=== PATIENT | female | born 1935 | race Caucasian/White ===

== ENCOUNTER → 2016-07-02 | Outpatient (CLI) | payer MEDICARE ==
[2016-07-02 10:03] LABS: ANION GAP 14 (5-19); BLOOD UREA NITROGEN 22 mg/dL (7-20); CALCIUM 9.1 mg/dL (8.4-10.2); CARBON DIOXIDE 29 mmol/L (22-30); CHLORIDE 100 mmol/L (98-107); CREATININE RESULT 1.69 mg/dL (0.52-1.25); GLUCOSE 102 mg/dL (75-110); POTASSIUM 3.7 mmol/L (3.6-5.0); SODIUM 142.7 mmol/L (137-145)
== END ==
LOC: OD 08:34
PROVIDERS: ATTEND Internal Medicine
DX: I50.32 Chronic diastolic (congestive) heart failure (principal); R06.02 Shortness of breath; I12.9 Hypertensive chronic kidney disease with stage 1 through stage 4 chronic kidney disease, or unspecified chronic kidney disease; N18.9 Chronic kidney disease, unspecified; I48.2 Chronic atrial fibrillation; I34.0 Nonrheumatic mitral (valve) insufficiency; I35.1 Nonrheumatic aortic (valve) insufficiency; I36.1 Nonrheumatic tricuspid (valve) insufficiency; I48.91 Unspecified atrial fibrillation; E78.5 Hyperlipidemia, unspecified; I27.89 Other specified pulmonary heart diseases; E11.9 Type 2 diabetes mellitus without complications; Z79.01 Long term (current) use of anticoagulants; Z79.899 Other long term (current) drug therapy
CPT/HCPCS: 36415; 80048; 83880

== ENCOUNTER → 2016-07-23 | Outpatient (CLI) | payer MEDICARE | LOC: OD 09:03 | PROVIDERS: ATTEND Internal Medicine | DX: I48.2 Chronic atrial fibrillation (principal); R06.02 Shortness of breath; I34.0 Nonrheumatic mitral (valve) insufficiency; I35.1 Nonrheumatic aortic (valve) insufficiency; E78.4 Other hyperlipidemia; I36.1 Nonrheumatic tricuspid (valve) insufficiency; I48.91 Unspecified atrial fibrillation; I12.9 Hypertensive chronic kidney disease with stage 1 through stage 4 chronic kidney disease, or unspecified chronic kidney disease; E78.5 Hyperlipidemia, unspecified; N18.9 Chronic kidney disease, unspecified; I27.89 Other specified pulmonary heart diseases; E11.9 Type 2 diabetes mellitus without complications; Z79.01 Long term (current) use of anticoagulants; I50.32 Chronic diastolic (congestive) heart failure; Z79.899 Other long term (current) drug therapy | CPT/HCPCS: 36415; 84132 ==

== ENCOUNTER → 2016-09-28 | Outpatient (CLI) | payer MEDICARE ==
[2016-09-28 09:16] LABS: ABSOLUTE EOSINOPHILS # (AUTO) 0.2 10^3/uL (0.0-0.6); ABSOLUTE LYMPHOCYTES (AUTO) 1.9 10^3/uL (0.5-4.7); ABSOLUTE MONOCYTES (AUTO) 0.7 10^3/uL (0.1-1.4); ABSOLUTE NEUT (AUTO) 3.4 10^3/uL (1.7-8.2); BASOPHILS % (AUTO) 0.8 % (0-2); EOSINOPHILS % (AUTO) 3.3 % (0-6); HEMATOCRIT 39.9 % (36.0-47.0); HEMOGLOBIN 13.3 g/dL (12.0-15.5); LYMPHOCYTES % (AUTO) 30.5 % (13-45); MEAN CORPUSCULAR HEMOGLOBIN 28.9 pg (27.0-33.4); MEAN CORPUSCULAR HGB CONC 33.4 g/dL (32.0-36.0); MEAN CORPUSCULAR VOLUME 87 fl (80-97); MONOCYTES % (AUTO) 10.9 % (3-13); RED BLOOD COUNT 4.61 10^6/uL (3.72-5.28); RED CELL DISTRIBUTION WIDTH 15.1 % (11.5-14.0); SEGMENTED NEUTROPHILS % (AUTO) 54.5 % (42-78); WHITE BLOOD COUNT 6.2 10^3/uL (4.0-10.5)
[2016-09-28 09:29] LABS: APPEARANCE,URINE CLOUDY; BILIRUBIN,URINE NEGATIVE (NEGATIVE); GLUCOSE, URINE NEGATIVE (NEGATIVE); KETONES,URINE NEGATIVE (NEGATIVE); LEUKOCYTE ESTERASE,URINE LARGE (NEGATIVE); NITRITE,URINE NEGATIVE (NEGATIVE); PROTEIN,URINE NEGATIVE (NEGATIVE); URINE SPECIFIC GRAVITY 1.012; UROBILINOGEN,URINE NEGATIVE mg/dL (<2.0)
[2016-09-28 09:39] LABS: ALBUMIN 4.1 g/dL (3.5-5.0); ANION GAP 13 (5-19); BLOOD UREA NITROGEN 34 mg/dL (7-20); CALCIUM 9.9 mg/dL (8.4-10.2); CARBON DIOXIDE 29 mmol/L (22-30); CHLORIDE 102 mmol/L (98-107); CREATININE RESULT 1.93 mg/dL (0.52-1.25); GLUCOSE 114 mg/dL (75-110); PHOSPHORUS 3.8 mg/dL (2.5-4.5); POTASSIUM 3.8 mmol/L (3.6-5.0); SODIUM 143.7 mmol/L (137-145)
[2016-09-29 08:32] LABS: VITAMIN D 25-HYDROXY 37.5 ng/mL (30.0-100.0)
[2016-09-29 12:38] LABS: CREATININE URINE 145.7 mg/dL (Not Estab.); MICROALBUMIN URINE 40.9 ug/mL (Not Estab.)
== END ==
LOC: OD 08:06
PROVIDERS: ATTEND Internal Medicine Nephrology
DX: N18.3 Chronic kidney disease, stage 3 (moderate) (principal)
CPT/HCPCS: 36415; 80048; 81001; 82040; 82043; 82306; 82570; 83970; 84100; 85025

== ENCOUNTER → 2016-10-29 | Outpatient (CLI) | payer MEDICARE ==
[2016-10-29 09:39] LABS: ANION GAP 13 (5-19); BLOOD UREA NITROGEN 34 mg/dL (7-20); CALCIUM 9.6 mg/dL (8.4-10.2); CARBON DIOXIDE 29 mmol/L (22-30); CHLORIDE 101 mmol/L (98-107); CREATININE RESULT 1.79 mg/dL (0.52-1.25); GLUCOSE 110 mg/dL (75-110); POTASSIUM 3.7 mmol/L (3.6-5.0); SODIUM 142.9 mmol/L (137-145)
[2016-10-29 09:48] LABS: ANION GAP 13 (5-19); BLOOD UREA NITROGEN 34 mg/dL (7-20); CALCIUM 9.6 mg/dL (8.4-10.2); CARBON DIOXIDE 29 mmol/L (22-30); CHLORIDE 101 mmol/L (98-107); CREATININE RESULT 1.79 mg/dL (0.52-1.25); GLUCOSE 110 mg/dL (75-110); POTASSIUM 3.7 mmol/L (3.6-5.0); SODIUM 142.9 mmol/L (137-145)
[2016-10-29 11:38] LABS: PROTHROMBIN TIME 56.8 SEC (11.4-15.4)
== END ==
LOC: OD 08:47
PROVIDERS: ATTEND Internal Medicine
DX: I48.0 Paroxysmal atrial fibrillation (principal); Z79.01 Long term (current) use of anticoagulants; I50.32 Chronic diastolic (congestive) heart failure; R06.02 Shortness of breath; I12.9 Hypertensive chronic kidney disease with stage 1 through stage 4 chronic kidney disease, or unspecified chronic kidney disease; N18.9 Chronic kidney disease, unspecified; I34.0 Nonrheumatic mitral (valve) insufficiency; I35.1 Nonrheumatic aortic (valve) insufficiency; E78.5 Hyperlipidemia, unspecified; I36.1 Nonrheumatic tricuspid (valve) insufficiency; I27.89 Other specified pulmonary heart diseases; E11.9 Type 2 diabetes mellitus without complications
CPT/HCPCS: 36415; 80048; 83880; 85610

== ENCOUNTER → 2016-11-09 | Outpatient (CLI) | payer MEDICARE ==
[2016-11-09 10:58] LABS: PROTHROMBIN TIME 34.1 SEC (11.4-15.4)
== END ==
LOC: OD 10:06
PROVIDERS: ATTEND Specialist
DX: I48.2 Chronic atrial fibrillation (principal); Z79.01 Long term (current) use of anticoagulants
CPT/HCPCS: 36415; 85610

== ENCOUNTER → 2016-11-23 | Outpatient (CLI) | payer MEDICARE ==
[2016-11-23 11:11] LABS: PROTHROMBIN TIME 23.2 SEC (11.4-15.4)
== END ==
LOC: OD 09:27
PROVIDERS: ATTEND Specialist
DX: I48.2 Chronic atrial fibrillation (principal); Z79.01 Long term (current) use of anticoagulants
CPT/HCPCS: 36415; 85610

== ENCOUNTER 2016-12-07 07:16 | Day surgery (SDC) | payer MEDICARE ==
[2016-12-01 10:19] LABS: ABSOLUTE BASOPHILS # (AUTO) 0.1 10^3/uL (0.0-0.2); ABSOLUTE EOSINOPHILS # (AUTO) 0.1 10^3/uL (0.0-0.6); ABSOLUTE LYMPHOCYTES (AUTO) 2.2 10^3/uL (0.5-4.7); ABSOLUTE NEUT (AUTO) 4.5 10^3/uL (1.7-8.2); EOSINOPHILS % (AUTO) 1.9 % (0-6); HEMATOCRIT 44.9 % (36.0-47.0); HEMOGLOBIN 14.4 g/dL (12.0-15.5); HGB HCT DIFFERENCE -1.7; LYMPHOCYTES % (AUTO) 27.8 % (13-45); MEAN CORPUSCULAR HEMOGLOBIN 28.9 pg (27.0-33.4); MEAN CORPUSCULAR HGB CONC 32.1 g/dL (32.0-36.0); MEAN CORPUSCULAR VOLUME 90 fl (80-97); MONOCYTES % (AUTO) 12.2 % (3-13); RED BLOOD COUNT 4.99 10^6/uL (3.72-5.28); RED CELL DISTRIBUTION WIDTH 14.2 % (11.5-14.0); SEGMENTED NEUTROPHILS % (AUTO) 57.1 % (42-78); WHITE BLOOD COUNT 7.9 10^3/uL (4.0-10.5)
[2016-12-01 10:32] LABS: APPEARANCE,URINE SLIGHTLY-CLOUDY; BILIRUBIN,URINE NEGATIVE (NEGATIVE); GLUCOSE, URINE NEGATIVE (NEGATIVE); KETONES,URINE NEGATIVE (NEGATIVE); LEUKOCYTE ESTERASE,URINE LARGE (NEGATIVE); NITRITE,URINE NEGATIVE (NEGATIVE); PROTEIN,URINE NEGATIVE (NEGATIVE); URINE SPECIFIC GRAVITY 1.008; UROBILINOGEN,URINE NEGATIVE mg/dL (<2.0)
[2016-12-01 10:36] LABS: BLOOD UREA NITROGEN 35 mg/dL (7-20); CALCIUM 10.7 mg/dL (8.4-10.2); CHLORIDE 98 mmol/L (98-107); CREATININE RESULT 2.16 mg/dL (0.52-1.25); GLUCOSE 133 mg/dL (75-110)
[2016-12-01 10:49] LABS: CARBON DIOXIDE 27 mmol/L (22-30); POTASSIUM 3.9 mmol/L (3.6-5.0); SODIUM 143.5 mmol/L (137-145)
[2016-12-01 10:52] LABS: ANION GAP 19 (5-19)
--- NOTE | 2016-12-01 11:16 | RADIOLOGY REPORT (SQ) ---
EXAM DESCRIPTION: CHEST PA/LATERAL COMPLETED DATE/TIME: 12/01/2016 10:55 am REASON FOR STUDY: PRE-OP COMPARISON: None. EXAM PARAMETERS: NUMBER OF VIEWS: two views TECHNIQUE: Digital Frontal and Lateral radiographic views of the chest acquired. RADIATION DOSE: NA LIMITATIONS: none FINDINGS: LUNGS AND PLEURA: No opacities, masses or pneumothorax. No pleural effusion. MEDIASTINUM AND HILAR STRUCTURES: No masses or contour abnormalities. HEART AND VASCULAR STRUCTURES: There is mild cardiac enlargement. No failure. BONES: No acute findings. HARDWARE: None in the chest. OTHER: No other significant finding. IMPRESSION: NO SIGNIFICANT RADIOGRAPHIC FINDING IN THE CHEST. TECHNICAL DOCUMENTATION: JOB ID: [id number] [employer] All Rights Reserved
--- NOTE | 2016-12-01 16:19 | EKG REPORT ---
SEVERITY:- ABNORMAL ECG - ATRIAL FIBRILLATION RIGHT BUNDLE BRANCH BLOCK : Confirmed by: Elisha Sheridan MD 01-Dec-2016 16:18:16
[~2016-12-07 07:16] MED LIST: CEFAZOLIN 2 GM/D5W RTU 2 GM/50 ML RTUPB IV PRN; LACTATED RINGERS 1000 ML IV PRN; LIDOCAINE 0.5% INJ-PF (5 MG/ML) 50 ML SDV SUBCUT PRN
[2016-12-07] MEDS ORDERED: BUPIVACAINE HCL 0.5 % INJ/PF 30 ML SDV ONE (08:13)
[2016-12-07] MEDS ORDERED: LIDOCAINE 1% INJ-PF (10 MG/ML) 30 ML SDV ONE (08:13)
[2016-12-07] MEDS ORDERED: BETAMET ACET/BETAMET NA INJ 6 MG/1 ML IM ONE (08:15)
[2016-12-07 08:18] LABS: POTASSIUM 4.3 mmol/L (3.6-5.0)
[2016-12-07 08:22] LABS: PROTHROMBIN TIME 25.9 SEC (11.4-15.4)
[2016-12-07 08:23] LABS: PARTIAL THROMBOPLASTIN TIME 42.9 SEC (23.5-35.8)
[2016-12-07] MEDS ORDERED: FENTANYL CITRATE INJ/PF 100 MCG/2 ML AMPUL ONE (09:09)
[2016-12-07] MEDS ORDERED: MIDAZOLAM 2 MG/2 ML INJ ONE ×2 (09:09)
[2016-12-07] MEDS ORDERED: PROPOFOL INJ 200 MG/20 ML VIAL IV ONE (09:10)
[2016-12-07] MEDS ORDERED: MEPERIDINE HCL/PF INJ 25 MG/1 ML DISP.SYRIN IV PRN (09:50)
[2016-12-07] MEDS ORDERED: MORPHINE SULFATE 10 MG/ML INJ IV PRN ×2 (09:50→10:15)
[2016-12-07] MEDS ORDERED: OXYCODONE-ACETAMINOPHEN 5-325 MG TABLET PO PRN ×2 (09:50)
[2016-12-07] MEDS ORDERED: FENTANYL CITRATE INJ/PF 100 MCG/2 ML AMPUL IV PRN ×3 (09:50)
[2016-12-07] MEDS ORDERED: DIPHENHYDRAMINE HCL 50 MG/ML VIAL IV PRN (09:50)
[2016-12-07] MEDS ORDERED: PROMETHAZINE HCL INJ 25 MG/1 ML VIAL IV PRN ×2 (09:50)
[2016-12-07] MEDS ORDERED: ONDANSETRON HCL INJ/PF 4 MG/2 ML SDV IV PRN (10:15)
[2016-12-07] MEDS ORDERED: HYDROCODONE/ACETAMINOPHEN 5-325 MG TABLET PO PRN (10:15)
--- NOTE | 2016-12-07 10:16 | Operative Report ---
Operative Report PREOPERATIVE DIAGNOSIS: Bilateral carpal tunnel syndrome right greater than left , right index trigger finger POSTOPERATIVE DIAGNOSIS: Same OPERATION: 1. Right endoscopic carpal tunnel release. 2. Release of A1 anshu left index finger. 3. Left carpal tunnel injection SURGEON: JORGE KIM ANESTHESIA: LMAC COMPLICATIONS: None ESTIMATED BLOOD LOSS: Minimal PROCEDURE: Indication for above procedure: 80-year-old female with long-standing history of numbness and tingling in her bilateral extremities. Neurodiagnostic testing was done demonstrating carpal tunnel syndrome. We attempted conservative measures without resolution of her symptoms. At that point we discussed treatment options including continued nonoperative management versus operative intervention. Given the fact she had concomitant trigger finger and the decision was made to proceed with right carpal tunnel release with index A1 anshu release and left carpal tunnel injection. Risks and benefits were explained the patient who verbalized understanding consented to the procedure. Procedure In Detail: Patient was seen and evaluated in the preoperative holding area. The RIGHT upper extremity was initialized and marked. Patient received Ancef IV for bacterial prophylaxis. Patient was taken back to the operative room where transferred operative table. Patient was then placed under MAC anesthesia. Once adequately anesthetized, a nonsterile tourniquet was placed on the upper extremity. A surgical team debriefing was performed ensuring all instrumentation was available, the surgical procedure was discussed with possible concerns reviewed. Skin was prepped with alcohol a 50:50 10 mL mixture of 1% lidocaine and 0.5% Marcaine plain was injected locally and w/in carpal canal and additional 5 cc was injected along the index A1 anshu. The left wrist was prepped with alcohol and 6 mg of Celestone was injected into the carpal canal. The RIGHT upper extremity was prepped with chlorhexidine and alcohol and draped in a sterile fashion. A timeout was done identifying correct patient, procedure and extremity everyone in attendance agree with this and verbalized no concerns.The extremity was then exsanguinated the tourniquet was inflated to 250 mmHg. Oblique skin incision was made centered over the A1 anshu of the index finger. The radial and ulnar neurovascular bundles were identified and retracted from the wound. The A1 anshu was identified and incised. The A1 anshu was released to the level of the A2 anshu but not through the A2 anshu. The palmar aponeurotic anshu was released proximal to the A1 anshu. Patient was then awoken from MAC anesthesia and made a full mold engraver there is no evidence of residual triggering or locking. The wound was then copiously irrigated with normal saline. Skin was closed with interrupted 4-0 Monocryl suture. I then proceeded with carpal tunnel release. A transverse skin incision was made just proximal to the wrist flexion crease ulnar to the palmaris longus. Blunt dissection was performed down to the palmaris longus tendon which was retracted radially. Deep to the palmaris longus tendon was the volar carpal ligament this was incised identifying the median nerve deep. With the use of a Salters elevator any soft tissue was freed from the undersurface of the distal transverse carpal ligament. The hook of hamate was identified ulnarly. The ConMed cannulas were then introduced beginning with #1 progressing to a #3 gently dilating the carpal canal. I then introduced the scope within the cannula and identified transverse carpal ligament ensuring the median nerve was not visualized within the cannula. I triangulated distally with a 25-gauge needle identifying the distal aspect of the transverse carpal ligament, to ensure protection of the superficial palmar arch. The arthroscopic knife was used to incise the transverse carpal ligament under direct visualization with the arthroscopic camera. Any excess transverse fibers that remained after the first past were carefully released with a repeat pass. The median nerve was then directly visualized radially without disruption. Once this was completed I placed the #3 dilator and assured I got complete release of the transverse carpal ligament without residual compression. The median nerve was directly visualized and free of any overlying compression. I then turned my attention to release of the volar antebrachial fascia proximally. Once again a Salters was used to open the wound and I proceeded with cannula #1 to #3. The arthroscope was introduced into the cannula and under direct visualization the volar antebrachial fascia was released. Once this was complete I copiusly irrigated the wound with normal saline. The skin incisions were closed with 4-0 Monocryl subcutaneous and a running subcuticular 4-0 Monocryl. This was reinforced with Dermabond and Steri -Strips. Sterile, 4 x 4's and a Chandra bandage was placed loosely. Sponge counts, instrument counts and needle counts were correct. The was no intraoperative complications patient tolerated the procedure well and was stable to PACU.
--- NOTE | 2016-12-07 10:16 | PDOC DISCHARGE SUMMARY ---
Discharge Summary (SDC) - Discharge Final Diagnosis: Bilateral carpal tunnel syndrome, left index trigger finger Date of Surgery: 12/07/16 Discharge Date: 12/07/16 Condition: Good Treatment or Instructions: Schedule Follow Up w/ Dr. Jose Sarmineto @ [facility] to be seen in 10-14 days or as scheduled [place]: [place]: [place]: May remove dressing on postop day #3, keep incision covered and dry. Ice and elevate May begin finger range of motion attempting to make full fist. Stool softener of choice when on pain medication. Prescriptions: Hydrocodone/Acetaminophen [[place] 5-325 mg Tablet] 1 tab PO Q6 PRN #20 tablet PRN Reason: Discharge Diet: As Tolerated Respiratory Treatments at Home: Deep Breathing/Coughing Discharge Activity: No Lifting Over 10 Pounds, No Lifting/Push/Pulling Report the Following to Your Physician Immediately: Fever over 101 Degrees, Unusual Bleeding, Redness, Swelling, Warmth, Increased Soreness
[2016-12-07 12:14] VITALS: BP 111/48
== END 2016-12-07 12:03 | disposition home or self-care (01) ==
LOC: OROUT 07:16
PROVIDERS: ATTEND Orthopaedic Surgery
PROC: 3E0T3BZ Introduction of Anesthetic Agent into Peripheral Nerves and Plexi, Percutaneous Approach (ICD-10-PCS; 2016-12-07)
PROC: 0LN70ZZ Release Right Hand Tendon, Open Approach (ICD-10-PCS; 2016-12-07)
PROC: 01N54ZZ Release Median Nerve, Percutaneous Endoscopic Approach (ICD-10-PCS; principal; 2016-12-07 09:45)
PROC: 3E0T33Z Introduction of Anti-inflammatory into Peripheral Nerves and Plexi, Percutaneous Approach (ICD-10-PCS; 2016-12-07 09:45)
DX: G56.03 Carpal tunnel syndrome, bilateral upper limbs (principal); M65.321 Trigger finger, right index finger; M18.11 Unilateral primary osteoarthritis of first carpometacarpal joint, right hand; I48.2 Chronic atrial fibrillation; I10 Essential (primary) hypertension; E11.9 Type 2 diabetes mellitus without complications; E66.9 Obesity, unspecified; Z79.899 Other long term (current) drug therapy; Z79.01 Long term (current) use of anticoagulants; Z68.31 Body mass index [BMI] 31.0-31.9, adult
CPT/HCPCS: 93005; 36415 ×2; 82947; 84132; 85025; 85610; 85730; 80048; 81001; 83036; 71020; 93010; 29848; 20526; 26055; J2250; J3490; J0702; J2704; J0690; 1810; J3010

== ENCOUNTER → 2016-12-20 | Outpatient (CLI) | payer MEDICARE | LOC: OD 08:58 | PROVIDERS: ATTEND Specialist | DX: I48.2 Chronic atrial fibrillation (principal); Z79.01 Long term (current) use of anticoagulants | CPT/HCPCS: 36415; 85610 ==

== ENCOUNTER → 2016-12-31 | Outpatient (CLI) | payer MEDICARE ==
[2016-12-31 12:41] LABS: PROTHROMBIN TIME 22.1 SEC (11.4-15.4)
== END ==
LOC: OD 11:08
PROVIDERS: ATTEND Specialist
DX: I48.2 Chronic atrial fibrillation (principal); Z79.01 Long term (current) use of anticoagulants
CPT/HCPCS: 36415; 85610

== ENCOUNTER → 2017-02-09 | Outpatient (CLI) | payer MEDICARE ==
[2017-02-09 12:36] LABS: PROTHROMBIN TIME 16.6 SEC (11.4-15.4)
== END ==
LOC: OD 11:44
PROVIDERS: ATTEND Specialist
DX: I48.2 Chronic atrial fibrillation (principal); Z79.01 Long term (current) use of anticoagulants
CPT/HCPCS: 36415; 85610

== ENCOUNTER → 2017-02-21 | Outpatient (CLI) | payer MEDICARE ==
[2017-02-21 12:47] LABS: PROTHROMBIN TIME 37.3 SEC (11.4-15.4)
[2017-02-21 13:06] LABS: ANION GAP 15 (5-19); BLOOD UREA NITROGEN 66 mg/dL (7-20); CALCIUM 10.3 mg/dL (8.4-10.2); CARBON DIOXIDE 21 mmol/L (22-30); CHLORIDE 105 mmol/L (98-107); CREATININE RESULT 2.63 mg/dL (0.52-1.25); GLUCOSE 108 mg/dL (75-110); POTASSIUM 4.9 mmol/L (3.6-5.0); SODIUM 140.6 mmol/L (137-145)
== END ==
LOC: OD 10:14
PROVIDERS: ATTEND Internal Medicine
DX: I50.32 Chronic diastolic (congestive) heart failure (principal); Z79.01 Long term (current) use of anticoagulants; I35.0 Nonrheumatic aortic (valve) stenosis; I34.0 Nonrheumatic mitral (valve) insufficiency; E78.4 Other hyperlipidemia; I12.9 Hypertensive chronic kidney disease with stage 1 through stage 4 chronic kidney disease, or unspecified chronic kidney disease; N18.9 Chronic kidney disease, unspecified; E11.9 Type 2 diabetes mellitus without complications; I27.89 Other specified pulmonary heart diseases; R94.31 Abnormal electrocardiogram [ECG] [EKG]; Z79.899 Other long term (current) drug therapy
CPT/HCPCS: 36415; 80048; 85610

== ENCOUNTER → 2017-03-17 | Outpatient (CLI) | payer MEDICARE ==
[2017-03-17 11:17] LABS: APPEARANCE,URINE SLIGHTLY-CLOUDY; BILIRUBIN,URINE NEGATIVE (NEGATIVE); GLUCOSE, URINE NEGATIVE (NEGATIVE); KETONES,URINE NEGATIVE (NEGATIVE); LEUKOCYTE ESTERASE,URINE LARGE (NEGATIVE); NITRITE,URINE NEGATIVE (NEGATIVE); PROTEIN,URINE NEGATIVE (NEGATIVE); UROBILINOGEN,URINE NEGATIVE mg/dL (<2.0)
[2017-03-17 11:25] LABS: PROTHROMBIN TIME 41.5 SEC (11.4-15.4)
[2017-03-17 11:27] LABS: ANION GAP 9 (5-19); BLOOD UREA NITROGEN 23 mg/dL (7-20); CALCIUM 9.4 mg/dL (8.4-10.2); CARBON DIOXIDE 26 mmol/L (22-30); CHLORIDE 106 mmol/L (98-107); CREATININE RESULT 2.11 mg/dL (0.52-1.25); GLUCOSE 93 mg/dL (75-110); POTASSIUM 4.7 mmol/L (3.6-5.0); SODIUM 141.4 mmol/L (137-145)
[2017-03-18 11:39] LABS: CREATININE URINE 95.6 mg/dL (Not Estab.); MICROALBUMIN URINE 24.6 ug/mL (Not Estab.)
== END ==
LOC: OD 10:17
PROVIDERS: ATTEND Internal Medicine Nephrology
DX: N18.3 Chronic kidney disease, stage 3 (moderate) (principal); E11.21 Type 2 diabetes mellitus with diabetic nephropathy; I48.2 Chronic atrial fibrillation; Z79.01 Long term (current) use of anticoagulants
CPT/HCPCS: 36415; 80048; 81001; 82043; 82570; 85610

== ENCOUNTER → 2017-03-29 | Outpatient (CLI) | payer MEDICARE ==
[2017-03-29 11:24] LABS: PROTHROMBIN TIME 31.8 SEC (11.4-15.4)
== END ==
LOC: OD 10:09
PROVIDERS: ATTEND Specialist
DX: I48.2 Chronic atrial fibrillation (principal); Z79.01 Long term (current) use of anticoagulants
CPT/HCPCS: 36415; 85610

== ENCOUNTER → 2017-04-18 | Outpatient (CLI) | payer MEDICARE ==
[2017-04-18 10:19] LABS: PROTHROMBIN TIME 30.3 SEC (11.4-15.4)
[2017-04-18 10:38] LABS: ANION GAP 14 (5-19); BLOOD UREA NITROGEN 28 mg/dL (7-20); CALCIUM 9.3 mg/dL (8.4-10.2); CARBON DIOXIDE 23 mmol/L (22-30); CHLORIDE 106 mmol/L (98-107); CREATININE RESULT 2.19 mg/dL (0.52-1.25); GLUCOSE 87 mg/dL (75-110); POTASSIUM 4.9 mmol/L (3.6-5.0); SODIUM 143.1 mmol/L (137-145)
== END ==
LOC: OD 09:10
PROVIDERS: ATTEND Internal Medicine Nephrology
DX: N18.4 Chronic kidney disease, stage 4 (severe) (principal); I48.2 Chronic atrial fibrillation; Z79.01 Long term (current) use of anticoagulants
CPT/HCPCS: 36415; 80048; 85610

== ENCOUNTER → 2017-05-17 | Outpatient (CLI) | payer MEDICARE | LOC: OD 09:00 | PROVIDERS: ATTEND Specialist | DX: I48.2 Chronic atrial fibrillation (principal); Z79.01 Long term (current) use of anticoagulants | CPT/HCPCS: 36415; 85610 ==

== ENCOUNTER 2017-06-01 08:54 | Day surgery (SDC) | payer MEDICARE ==
[2017-05-25 10:54] LABS: HEMATOCRIT 39.5 % (36.0-47.0); HEMOGLOBIN 13.4 g/dL (12.0-15.5); HGB HCT DIFFERENCE 0.7; MEAN CORPUSCULAR HEMOGLOBIN 30.7 pg (27.0-33.4); MEAN CORPUSCULAR VOLUME 90 fl (80-97); RED BLOOD COUNT 4.37 10^6/uL (3.72-5.28); RED CELL DISTRIBUTION WIDTH 13.9 % (11.5-14.0); WHITE BLOOD COUNT 6.4 10^3/uL (4.0-10.5)
[2017-05-25 11:27] LABS: ANION GAP 12 (5-19); BLOOD UREA NITROGEN 42 mg/dL (7-20); CALCIUM 9.6 mg/dL (8.4-10.2); CARBON DIOXIDE 25 mmol/L (22-30); CHLORIDE 103 mmol/L (98-107); CREATININE RESULT 2.38 mg/dL (0.52-1.25); GLUCOSE 102 mg/dL (75-110); POTASSIUM 4.5 mmol/L (3.6-5.0); SODIUM 140.3 mmol/L (137-145)
--- NOTE | 2017-05-25 13:20 | EKG REPORT ---
SEVERITY:- ABNORMAL ECG - ATRIAL FIBRILLATION RIGHT BUNDLE BRANCH BLOCK : Confirmed by: Dudley Merida MD 25-May-2017 13:20:15
[~2017-06-01 08:54] MED LIST changes: +CEFAZOLIN 1 GM/D5W RTU 1 GM/50 ML RTUPB IV ONE; -CEFAZOLIN 2 GM/D5W RTU 2 GM/50 ML RTUPB IV PRN; +CEFAZOLIN INJ 1 GM VIAL IV PRN; -LACTATED RINGERS 1000 ML IV PRN; -LIDOCAINE 0.5% INJ-PF (5 MG/ML) 50 ML SDV SUBCUT PRN; +LIDOCAINE 4% TRANSPARENT DRESSING 5 GM KIT TP PRN; +NORMAL SALINE 1000 ML (RENAL PATIENTS) IV PRN; +SUCCINYLCHOLINE CHLORIDE INJ 200 MG/10 ML VIAL ONE
[2017-06-01] MEDS ORDERED: LIDOCAINE 4% TRANSPARENT DRESSING 5 GM KIT TP PRN (09:07)
[2017-06-01 09:41] LABS: PROTHROMBIN TIME 17.6 SEC (11.4-15.4)
[2017-06-01 09:42] LABS: PARTIAL THROMBOPLASTIN TIME 36.7 SEC (23.5-35.8)
[2017-06-01] MEDS ORDERED: METHYLENE BLUE 50 MG/10 ML AMPULE ONE (09:42)
[2017-06-01] MEDS ORDERED: MICROFIBRILLAR COLLAGEN 1 GM PACK ONE (09:42)
[2017-06-01] MEDS ORDERED: LIDOCAINE 1%/EPINEPHRINE INJ 20 ML VIAL ONE ×2 (09:42→15:14)
[2017-06-01 09:53] LABS: POTASSIUM 4.4 mmol/L (3.6-5.0)
--- NOTE | 2017-06-01 11:59 | EKG REPORT ---
SEVERITY:- ABNORMAL ECG - ATRIAL FIBRILLATION RIGHT BUNDLE BRANCH BLOCK PROBABLE ANTEROSEPTAL INFARCT, AGE INDETERM : Confirmed by: Clifton Ignacio 01-Jun-2017 11:58:57
--- NOTE | 2017-06-01 13:44 | RADIOLOGY REPORT (SQ) ---
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 RADIONUCLIDE AND DOSE: 573 microcuries TC-99mtilmanocept - [employer]ek. The route of agent administration: Subcutaneous in the skin. TECHNIQUE: The skin of the left breast was prepped in sterile fashion. The radiopharmaceutical was administered in equally divided doses in the periareolar breast. LIMITATIONS: None. FINDINGS: Images demonstrate activity at the injection site. IMPRESSION: ADMINISTRATION OF RADIOPHARMACEUTICAL FOR SENTINEL LYMPH NODE EVALUATION. TECHNICAL DOCUMENTATION: JOB ID: [id number] [employer]- All Rights Reserved
[2017-06-01] MEDS ORDERED: EPHEDRINE SULFATE INJ 50 MG/1 ML AMPULE ONE (16:14)
[2017-06-01] MEDS ORDERED: MIDAZOLAM 2 MG/2 ML INJ ONE (16:14)
[2017-06-01] MEDS ORDERED: LIDOCAINE 2% INJ-PF (100 MG/5 ML) SYRINGE ONE (16:14)
[2017-06-01] MEDS ORDERED: FENTANYL CITRATE INJ/PF 100 MCG/2 ML AMPUL ONE (16:14)
[2017-06-01] MEDS ORDERED: HYDROMORPHONE HCL INJ/PF 2 MG/ML AMPULE ONE (16:14)
[2017-06-01] MEDS ORDERED: PROPOFOL INJ 200 MG/20 ML VIAL IV ONE (16:15)
[2017-06-01] MEDS ORDERED: ACETAMINOPHEN 100 ML IV ONE (16:15)
[2017-06-01] MEDS ORDERED: PROMETHAZINE HCL INJ 25 MG/1 ML VIAL IV PRN ×2 (17:15)
[2017-06-01] MEDS ORDERED: MORPHINE SULFATE 10 MG/ML INJ IV PRN ×2 (17:15→18:23)
[2017-06-01] MEDS ORDERED: ONDANSETRON HCL INJ/PF 4 MG/2 ML SDV IV PRN (17:15)
[2017-06-01] MEDS ORDERED: MEPERIDINE HCL/PF INJ 25 MG/1 ML DISP.SYRIN IV PRN (17:15)
[2017-06-01] MEDS ORDERED: OXYCODONE-ACETAMINOPHEN 5-325 MG TABLET PO PRN ×2 (17:15)
[2017-06-01] MEDS ORDERED: FENTANYL CITRATE INJ/PF 100 MCG/2 ML AMPUL IV PRN ×3 (17:15)
[2017-06-01] MEDS ORDERED: DIPHENHYDRAMINE HCL 50 MG/ML VIAL IV PRN (17:15)
[2017-06-01] MEDS ORDERED: KETOROLAC TROMETHAMINE INJ/PF 30 MG/1 ML SDV IV PRN (18:23)
--- NOTE | 2017-06-01 18:28 | Operative Report ---
Operative Report DATE OF SURGERY: 06/01/17 PREOPERATIVE DIAGNOSIS: Invasive lobular left breast carcinoma POSTOPERATIVE DIAGNOSIS: Same OPERATION: 1. Left mastectomy with drain placement. 2. [place] lymph node biopsy left axilla 1. SURGEON: DANNY BELLO INFORMATION MANAGEMENT SPECIALIST: RACHEL RIVERA ANESTHESIA: GA TISSUE REMOVED OR ALTERED: Left breast and sentinel lymph node; Portions of skin flaps COMPLICATIONS: None complications ESTIMATED BLOOD LOSS: 100 cc INTRAOPERATIVE FINDINGS: See below PROCEDURE: The patient was seen in the preop holding area after undergoing left axillary lymphoscintigraphy. The patient had essentially no uptake during the lymph scintigram however after approximately 5 hours in the preop holding area, the patient was found at bedside using neoprobe assessment to have activity in the low axilla. Therefore we proceeded to take the patient to the operating for planned procedure. In addition the patient was evaluated by Dr. Sheridan, medical sales consultant, who felt the patient was at low to moderate risk for perioperative cardiovascular events. The patient was ultimately taken to the operating room she underwent general anesthesia. Left arm is abducted. Left breast exposed. The upper outer aspect of the left periareolar tissue was prepped with alcohol, and approximately 2-1/2 cc of full-strength methylene blue was injected into the intradermal space. The left breast was massaged in the left breast chest wall and axilla were prepped and draped in sterile fashion. Surgical plan and surgical timeout were conducted. Markings were made on the patient's skin for the planned mastectomy. An ellipse of skin was made with a #10 blade. Superior and inferior skin flaps were raised in the standard fashion with the level of dissection taken from the infraclavicular edge to the parasternal tissue and the serratus anterior muscle inferiorly. The breast was taken off of the chest wall including the pectoralis major fascia. We swept the breast and tail of [place]aley off of the lateral aspect of the dissection. The left breast was marked with a short suture in the superior skin edge and a long suture in the lateral skin edge. We noted that the lobular carcinoma was in the deep central aspect of the left breast towards the lateral side. Because of its potential proximity to the anterior subcutaneous and skin margins, we elected to resect a triangular- shaped piece of skin and subcutaneous tissue essentially the inferior lateral remaining margin after mastectomy. It was marked with a short suture in the superior position and a long suture in the lateral position. It was labeled as inferior mastectomy margin and sent to pathology as well. Dr. Solitario personally handcarried the left breast and inferior margin specimens as described above to Dr. Campos, the pathologist. The mastectomy specimen was inked and sliced; the tumor was felt to be with in the gross margins of the specimen. The inferior lateral margin was left for future analysis. We returned to the wound check for bleeding there was none. Additional skin edges were sharply debrided to affect a more cosmetically is fine closure. A large Thomas drain was inferior skin flap, the wound closed with 2-0 Vicryl, skin glue. The physician visitor use assistant, Ms. Leonard, provided assistance during this case by: Assisting , retracting tissue, instillation of local anesthesia and closure of skin incisions.
[2017-06-02 08:14] VITALS: BP 128/53
--- NOTE | 2017-06-02 14:01 | DISCHARGE SUMMARY E ---
Discharge Summary NAME: TWAN ANGELES : 1935 AGE: 81Y ADMITTED: 06/01/2017 DISCHARGED: 06/02/2017 REASON FOR ADMISSION: Invasive lobular carcinoma, left breast. SUMMARY OF HOSPITALIZATION: The patient is an 81-year-old white female with a history of invasive lobular carcinoma of the left breast. She is brought to Ambulatory Surgery for left mastectomy in conjunction with sentinel lymph node mapping and biopsy. The procedure is performed by Dr. Solitario on 06/01/2017. The patient tolerated the procedure well and had no postoperative complications. The following morning she was doing well, tolerating a diet and voiding without difficulty. She was instructed on drain care. She was felt to have received maximum benefit from the hospitalization. Was discharged home. FINAL DIAGNOSES: INVASIVE LOBULAR BREAST CARCINOMA, STATUS POST MASTECTOMY WITH SENTINEL LOBE BIOPSY, DR. SOLITARIO. DISPOSITION: Patient will be discharged home to the care of her family. Follow with Dr. Solitario in 1 week and drain her receptacle and record output accordingly. She will resume preoperative medications, diet and activity and will monitor her blood pressure. DICTATING PHYSICIAN: DANNY SOLITARIO M.D. [id number] PHY#: [id number] ID: [id number] JOB#: [id number] ACCT: [id number] cc:DANNY SOLITARIO M.D. >
== END 2017-06-02 07:50 | disposition home or self-care (01) ==
LOC: 4N 08:54 → OROUT 08:54
PROVIDERS: ATTEND Surgery
PROC: 07B60ZX Excision of Left Axillary Lymphatic, Open Approach, Diagnostic (ICD-10-PCS; 2017-06-01)
PROC: 0HTU0ZZ Resection of Left Breast, Open Approach (ICD-10-PCS; principal; 2017-06-01 12:30)
DX: C50.912 Malignant neoplasm of unspecified site of left female breast (principal); Z17.0 Estrogen receptor positive status [ER+]; Z79.01 Long term (current) use of anticoagulants; Z79.899 Other long term (current) drug therapy; I10 Essential (primary) hypertension; E11.9 Type 2 diabetes mellitus without complications; Z79.84 Long term (current) use of oral hypoglycemic drugs; I49.9 Cardiac arrhythmia, unspecified; I48.91 Unspecified atrial fibrillation
CPT/HCPCS: 93005 ×2; 36415 ×2; 82947; 84132; 85027; 85610; 85730; 80048; 88342 ×2; 88305 ×2; 88307 ×2; 88329; 78195; 94799; 93010 ×2; 19307; A9520; J2250; J0690; J2001; J1170; J3490; J0330; J2704; J0131; Q9968; 1610; J3010

== ENCOUNTER → 2017-06-14 | Outpatient (CLI) | payer MEDICARE ==
[2017-06-14 16:57] LABS: PROTHROMBIN TIME 31.1 SEC (11.4-15.4)
== END ==
LOC: OD 15:47
PROVIDERS: ATTEND Specialist
DX: I48.2 Chronic atrial fibrillation (principal); Z79.01 Long term (current) use of anticoagulants
CPT/HCPCS: 36415; 85610

== ENCOUNTER → 2017-06-29 | Outpatient (CLI) | payer MEDICARE ==
[2017-06-29 12:10] LABS: INTERNATIONAL RATION (INR) 1.57; PROTHROMBIN TIME 19.7 SEC (11.4-15.4)
[2017-06-29 12:28] LABS: ANION GAP 13 (5-19); BLOOD UREA NITROGEN 24 mg/dL (7-20); CALCIUM 10.2 mg/dL (8.4-10.2); CARBON DIOXIDE 27 mmol/L (22-30); CHLORIDE 107 mmol/L (98-107); GLUCOSE 94 mg/dL (75-110); POTASSIUM 4.8 mmol/L (3.6-5.0); SODIUM 146.5 mmol/L (137-145)
== END ==
LOC: OD 10:36
PROVIDERS: ATTEND Specialist
DX: I50.32 Chronic diastolic (congestive) heart failure (principal); I48.2 Chronic atrial fibrillation; Z79.01 Long term (current) use of anticoagulants; I35.0 Nonrheumatic aortic (valve) stenosis; I34.0 Nonrheumatic mitral (valve) insufficiency; E78.4 Other hyperlipidemia; I27.89 Other specified pulmonary heart diseases; I36.1 Nonrheumatic tricuspid (valve) insufficiency; E11.22 Type 2 diabetes mellitus with diabetic chronic kidney disease; I12.9 Hypertensive chronic kidney disease with stage 1 through stage 4 chronic kidney disease, or unspecified chronic kidney disease; N18.9 Chronic kidney disease, unspecified; R94.31 Abnormal electrocardiogram [ECG] [EKG]; Z79.899 Other long term (current) drug therapy
CPT/HCPCS: 36415; 80048; 85610

== ENCOUNTER → 2017-07-06 | Outpatient (CLI) | payer MEDICARE | LOC: OD 10:20 | PROVIDERS: ATTEND Specialist | DX: I48.2 Chronic atrial fibrillation (principal); Z79.01 Long term (current) use of anticoagulants | CPT/HCPCS: 36415; 85610 ==

== ENCOUNTER → 2017-07-18 | Outpatient (CLI) | payer MEDICARE ==
[2017-07-18 10:55] LABS: ABSOLUTE EOSINOPHILS # (AUTO) 0.1 10^3/uL (0.0-0.6); ABSOLUTE LYMPHOCYTES (AUTO) 1.1 10^3/uL (0.5-4.7); ABSOLUTE MONOCYTES (AUTO) 0.6 10^3/uL (0.1-1.4); ABSOLUTE NEUT (AUTO) 4.7 10^3/uL (1.7-8.2); BASOPHILS % (AUTO) 0.8 % (0-2); EOSINOPHILS % (AUTO) 1.6 % (0-6); HEMATOCRIT 39.4 % (36.0-47.0); HEMOGLOBIN 13.1 g/dL (12.0-15.5); LYMPHOCYTES % (AUTO) 16.8 % (13-45); MEAN CORPUSCULAR HEMOGLOBIN 29.5 pg (27.0-33.4); MEAN CORPUSCULAR HGB CONC 33.3 g/dL (32.0-36.0); MEAN CORPUSCULAR VOLUME 89 fl (80-97); PLATELET COUNT 182 10^3/uL (150-450); RED BLOOD COUNT 4.44 10^6/uL (3.72-5.28); RED CELL DISTRIBUTION WIDTH 13.4 % (11.5-14.0); SEGMENTED NEUTROPHILS % (AUTO) 71.8 % (42-78); TOTAL CELLS COUNTED % (AUTO) 100 %; WHITE BLOOD COUNT 6.5 10^3/uL (4.0-10.5)
[2017-07-18 11:00] LABS: APPEARANCE,URINE CLEAR; BILIRUBIN,URINE NEGATIVE (NEGATIVE); COLOR,URINE YELLOW; GLUCOSE, URINE NEGATIVE (NEGATIVE); KETONES,URINE NEGATIVE (NEGATIVE); LEUKOCYTE ESTERASE,URINE MODERATE (NEGATIVE); NITRITE,URINE NEGATIVE (NEGATIVE); PROTEIN,URINE NEGATIVE (NEGATIVE); URINE SPECIFIC GRAVITY 1.008; UROBILINOGEN,URINE NEGATIVE mg/dL (<2.0)
[2017-07-18 11:05] LABS: ALBUMIN 4.2 g/dL (3.5-5.0); ANION GAP 9 (5-19); BLOOD UREA NITROGEN 32 mg/dL (7-20); CALCIUM 9.8 mg/dL (8.4-10.2); CARBON DIOXIDE 27 mmol/L (22-30); CHLORIDE 103 mmol/L (98-107); GLUCOSE 121 mg/dL (75-110); PHOSPHORUS 3.4 mg/dL (2.5-4.5); SODIUM 139.2 mmol/L (137-145)
[2017-07-19 12:38] LABS: CREATININE URINE 67.7 mg/dL (Not Estab.); MICROALBUMIN URINE 16.4 ug/mL (Not Estab.)
== END ==
LOC: OD 10:06
PROVIDERS: ATTEND Internal Medicine Nephrology
DX: I12.9 Hypertensive chronic kidney disease with stage 1 through stage 4 chronic kidney disease, or unspecified chronic kidney disease (principal); N18.4 Chronic kidney disease, stage 4 (severe); E11.9 Type 2 diabetes mellitus without complications; E55.9 Vitamin D deficiency, unspecified
CPT/HCPCS: 36415; 80048; 81001; 82040; 82043; 82306; 82570; 83970; 84100; 85025

== ENCOUNTER → 2017-07-18 | Outpatient (CLI) | payer MEDICARE ==
--- NOTE | 2017-07-18 09:52 | WOMENS IMAGING REPORT ---
EXAM DESCRIPTION: BONE DENSITY HIP/SPINE COMPLETED DATE/TIME: 07/18/2017 9:01 am REASON FOR STUDY: AGE-RELATED OSTEOPROSIS; M81.0 M81.0 AGE-RELATED OSTEOPOROSIS W/O CURRENT [facility] COMPARISON: 2005 TECHNIQUE: Dual-Energy X-ray Absorptiometry (DEXA) of the AP Spine and Hip. LIMITATIONS: None. FINDINGS: LUMBAR SPINE: The bone mineral density (BMD) measured from L1-L4 in the AP projection correlates with a T-score of -1.0, which is osteopenic as defined by the World Health Organization. This is stable compared to 14 12 HIP: The bone mineral density (BMD) measured in the left femoral neck at the hip correlates with a T-score of -1.0, which is osteopenic as defined by the World Health Organization. This is stable compared t o 2005 IMPRESSION: 1. LUMBAR SPINE: Osteopenic 2. HIP: Osteopenic COMMENT: The World Health Organization defines low BMD as follows: T-score: Normal: Greater than -1.0 Osteopenia: Between -1.0 and -2.5 Osteoporosis: Less than -2.5 without fractures Established osteoporosis: Less than -2.5 with fractures In general, you may wish to consider: Diagnosis Treatment Follow-up DEXA Normal BMD Prevention 2-3 years Osteopenia Prevention/Therapy 1-2 years Osteoporosis Therapy Yearly TECHNICAL DOCUMENTATION: JOB ID: [id number]- All Rights Reserved
== END ==
LOC: WI 08:47
PROVIDERS: ATTEND Internal Medicine Hematology & Oncology
DX: M81.0 Age-related osteoporosis without current pathological fracture (principal)
CPT/HCPCS: 77080

== ENCOUNTER → 2017-08-05 | Outpatient (CLI) | payer MEDICARE ==
[2017-08-05 10:25] LABS: INTERNATIONAL RATION (INR) 3.04; PROTHROMBIN TIME 32.9 SEC (11.4-15.4)
== END ==
LOC: OD 09:39
PROVIDERS: ATTEND Specialist
DX: I48.2 Chronic atrial fibrillation (principal); Z79.01 Long term (current) use of anticoagulants
CPT/HCPCS: 36415; 85610

== ENCOUNTER 2017-08-26 10:58 | Outpatient (CLI) | payer MEDICARE ==
[~2017-08-26 10:58] MED LIST changes: -CEFAZOLIN 1 GM/D5W RTU 1 GM/50 ML RTUPB IV ONE; -CEFAZOLIN INJ 1 GM VIAL IV PRN; +DENOSUMAB 60 MG/ML SYR 1 ML SUBCUT PRN; -LIDOCAINE 4% TRANSPARENT DRESSING 5 GM KIT TP PRN; -NORMAL SALINE 1000 ML (RENAL PATIENTS) IV PRN; -SUCCINYLCHOLINE CHLORIDE INJ 200 MG/10 ML VIAL ONE
[2017-08-26 12:23] VITALS: BP 136/72
== END 2017-08-26 12:23 | disposition home or self-care (01) ==
LOC: II 10:58
PROVIDERS: ATTEND Internal Medicine Hematology & Oncology
PROC: 3E0130M Introduction of Antineoplastic, Monoclonal Antibody, into Subcutaneous Tissue, Percutaneous Approach (ICD-10-PCS; principal; 2017-08-26)
DX: M85.80 Other specified disorders of bone density and structure, unspecified site (principal)
CPT/HCPCS: 96401; J0897

== ENCOUNTER → 2017-09-07 | Outpatient (CLI) | payer MEDICARE ==
[2017-09-07 09:33] LABS: INTERNATIONAL RATION (INR) 2.37; PROTHROMBIN TIME 27.1 SEC (11.4-15.4)
== END ==
LOC: OD 08:03
PROVIDERS: ATTEND Specialist
DX: I48.2 Chronic atrial fibrillation (principal); Z79.01 Long term (current) use of anticoagulants
CPT/HCPCS: 36415; 85610

== ENCOUNTER 2017-10-11 08:36 | Day surgery (SDC) | payer MEDICARE ==
[2017-10-07 11:12] LABS: ABSOLUTE BASOPHILS # (AUTO) 0.1 10^3/uL (0.0-0.2); ABSOLUTE EOSINOPHILS # (AUTO) 0.1 10^3/uL (0.0-0.6); ABSOLUTE LYMPHOCYTES (AUTO) 1.2 10^3/uL (0.5-4.7); ABSOLUTE MONOCYTES (AUTO) 0.7 10^3/uL (0.1-1.4); ABSOLUTE NEUT (AUTO) 4.6 10^3/uL (1.7-8.2); BASOPHILS % (AUTO) 0.8 % (0-2); EOSINOPHILS % (AUTO) 1.6 % (0-6); HEMATOCRIT 42.1 % (36.0-47.0); LYMPHOCYTES % (AUTO) 18.7 % (13-45); MEAN CORPUSCULAR HEMOGLOBIN 29.8 pg (27.0-33.4); MEAN CORPUSCULAR HGB CONC 33.2 g/dL (32.0-36.0); MEAN CORPUSCULAR VOLUME 90 fl (80-97); MONOCYTES % (AUTO) 9.9 % (3-13); PLATELET COUNT 165 10^3/uL (150-450); RED BLOOD COUNT 4.69 10^6/uL (3.72-5.28); RED CELL DISTRIBUTION WIDTH 14.2 % (11.5-14.0); TOTAL CELLS COUNTED % (AUTO) 100 %; WHITE BLOOD COUNT 6.7 10^3/uL (4.0-10.5)
[2017-10-07 11:14] LABS: APPEARANCE,URINE CLEAR; BILIRUBIN,URINE NEGATIVE (NEGATIVE); COLOR,URINE STRAW; GLUCOSE, URINE NEGATIVE (NEGATIVE); KETONES,URINE NEGATIVE (NEGATIVE); LEUKOCYTE ESTERASE,URINE NEGATIVE (NEGATIVE); NITRITE,URINE NEGATIVE (NEGATIVE); PROTEIN,URINE NEGATIVE (NEGATIVE); URINE SPECIFIC GRAVITY 1.004; UROBILINOGEN,URINE NEGATIVE mg/dL (<2.0)
--- NOTE | 2017-10-07 11:24 | RADIOLOGY REPORT (SQ) ---
EXAM DESCRIPTION: CHEST PA/LATERAL COMPLETED DATE/TIME: 10/07/2017 11:15 am REASON FOR STUDY: PRE OP COMPARISON: Two-view chest 12/01/2016 EXAM PARAMETERS: NUMBER OF VIEWS: two views TECHNIQUE: Digital Frontal and Lateral radiographic views of the chest acquired. RADIATION DOSE: NA LIMITATIONS: none FINDINGS: LUNGS AND PLEURA: Bibasilar bandlike atelectasis is present. No fluffy alveolar infiltrates worrisome for edema or pneumonia. No pleural effusions or pneumothorax. MEDIASTINUM AND HILAR STRUCTURES: No masses or contour abnormalities. HEART AND VASCULAR STRUCTURES: Marked cardiomegaly BONES: Osteopenic HARDWARE: Surgical clips over the left chest post mastectomy. OTHER: No other significant finding. IMPRESSION: Bibasilar bandlike atelectasis Cardiomegaly Old left mastectomy TECHNICAL DOCUMENTATION: JOB ID: [id number]- All Rights Reserved Reading location - IP/workstation name: [facility]
[2017-10-07 11:25] LABS: ANION GAP 15 (5-19); BLOOD UREA NITROGEN 24 mg/dL (7-20); CALCIUM 9.9 mg/dL (8.4-10.2); CARBON DIOXIDE 26 mmol/L (22-30); CHLORIDE 103 mmol/L (98-107); GLUCOSE 91 mg/dL (75-110); POTASSIUM 4.3 mmol/L (3.6-5.0); SODIUM 144.1 mmol/L (137-145)
--- NOTE | 2017-10-07 13:35 | EKG REPORT ---
SEVERITY:- ABNORMAL ECG - ATRIAL FIBRILLATION, V-RATE 56-106 RBBB AND LPFB : Confirmed by: Dudley Merida MD 07-Oct-2017 13:35:00
[~2017-10-11 08:36] MED LIST changes: +BUPIVACAINE HCL 0.5 % INJ/PF 30 ML SDV ONE; -DENOSUMAB 60 MG/ML SYR 1 ML SUBCUT PRN; +DEXAMETHASONE SOD PHOSPHATE INJ 4 MG/1 ML VIAL ONE; +FENTANYL CITRATE INJ/PF 100 MCG/2 ML AMPUL ONE; +LACTATED RINGERS 1000 ML IV PRN; +LIDOCAINE 0.5% INJ-PF (5 MG/ML) 50 ML SDV SUBCUT PRN; +LIDOCAINE 1% INJ-PF (10 MG/ML) 30 ML SDV ONE; +LIDOCAINE 2% INJ-PF (100 MG/5 ML) SYRINGE ONE; +MIDAZOLAM 2 MG/2 ML INJ ONE; +ONDANSETRON HCL INJ/PF 4 MG/2 ML SDV ONE; +PROPOFOL INJ 200 MG/20 ML VIAL IV ONE
[2017-10-11 09:25] LABS: INTERNATIONAL RATION (INR) 1.18; PROTHROMBIN TIME 15.7 SEC (11.4-15.4)
[2017-10-11 09:26] LABS: PARTIAL THROMBOPLASTIN TIME 34.4 SEC (23.5-35.8)
[2017-10-11] MEDS ORDERED: CEFAZOLIN 2 GM/D5W RTU 2 GM/50 ML RTUPB IV ONE (09:32)
[2017-10-11] MEDS ORDERED: FAMOTIDINE INJ/PF 20 MG/2 ML SDV IV ONE (09:32)
[2017-10-11] MEDS ORDERED: METOCLOPRAMIDE HCL INJ/PF 10 MG/2 ML SDV ONE (09:41)
[2017-10-11 09:45] LABS: POTASSIUM 4.6 mmol/L (3.6-5.0)
[2017-10-11] MEDS ORDERED: DIPHENHYDRAMINE HCL 50 MG/ML VIAL IV PRN (10:20)
[2017-10-11] MEDS ORDERED: ONDANSETRON HCL INJ/PF 4 MG/2 ML SDV IV PRN (10:20)
[2017-10-11] MEDS ORDERED: MORPHINE SULFATE 10 MG/ML INJ IV PRN (10:20)
[2017-10-11] MEDS ORDERED: PROMETHAZINE HCL INJ 25 MG/1 ML VIAL IV PRN (10:20)
[2017-10-11] MEDS ORDERED: FENTANYL CITRATE INJ/PF 100 MCG/2 ML AMPUL IV PRN (10:20)
[2017-10-11 13:24] VITALS: BP 132/66
--- NOTE | 2017-10-18 11:30 | Discharge Summary ---
Discharge Summary (SDC) - Discharge Final Diagnosis: Left Carpal Tunnel Syndrome Date of Surgery: 10/11/17 Discharge Date: 10/11/17 Condition: Good Treatment or Instructions: Schedule Follow Up w/ Dr. Jose Sarmiento @ [facility] for Surgery to be seen in 10-14 days or as scheduled [place]: [place]: [place]: May remove dressing on postop day #3, keep incision covered and dry. Ice and elevate May begin finger range of motion attempting to make full fist. Stool softener of choice when on pain medication. Prescriptions: Hydrocodone/Acetaminophen [[place] 5-325 mg Tablet] 1 tab PO Q6 PRN #20 tablet PRN Reason: Referrals: MILVIA RED MD [Primary Care Provider] - Discharge Diet: As Tolerated Respiratory Treatments at Home: Deep Breathing/Coughing Discharge Activity: No Lifting Over 10 Pounds, No Lifting/Push/Pulling Report the Following to Your Physician Immediately: Fever over 101 Degrees, Unusual Bleeding, Redness, Swelling, Warmth, Increased Soreness
--- NOTE | 2017-10-18 11:30 | Operative Report ---
Operative Report DATE OF SURGERY: 10/11/17 PREOPERATIVE DIAGNOSIS: Left Carpal Tunnel Syndrome POSTOPERATIVE DIAGNOSIS: Left Carpal Tunnel Syndrome OPERATION: Left Endoscopic Carpal Tunnel Release SURGEON: JORGE KIM ANESTHESIA: LMAC COMPLICATIONS: None ESTIMATED BLOOD LOSS: Minimal PROCEDURE: Indication for above procedure: 81-year-old female with history of bilateral carpal tunnel syndrome. Patient underwent successful right carpal tunnel release with good results but then began developing similar symptoms of the left carpal tunnel. We attempted conservative measures without resolution of patient's symptoms. Decision was made to proceed with operative treatment. Procedure In Detail: Patient was seen and evaluated in the preoperative holding area. The LEFT upper extremity was initialized and marked. Patient received Ancef IV for bacterial prophylaxis. Patient was taken back to the operative room where transferred operative table. Patient was then placed under MAC anesthesia. Once adequately anesthetized, a nonsterile tourniquet was placed on the upper extremity. A surgical team debriefing was performed ensuring all instrumentation was available, the surgical procedure was discussed with possible concerns reviewed. Skin was prepped with alcohol a 50:50 10 mL mixture of 1% lidocaine and 0.5% Marcaine plain was injected locally and w/in carpal canal. The upper extremity was prepped with chlorhexidine and alcohol and draped in a sterile fashion. A timeout was done identifying correct patient, procedure and extremity everyone in attendance agree with this and verbalized no concerns.The extremity was then exsanguinated the tourniquet was inflated to 250 mmHg. A transverse skin incision was made just proximal to the wrist flexion crease ulnar to the palmaris longus. Blunt dissection was performed down to the palmaris longus tendon which was retracted radially. Deep to the palmaris longus tendon was the volar carpal ligament this was incised identifying the median nerve deep. With the use of a Morton elevator any soft tissue/synovium was freed from the undersurface of the transverse carpal ligament. The hook of hamate was identified ulnarly. The ConMed cannulas were then introduced beginning with #1 progressing to a #3 gently dilating the carpal canal. I then introduced the scope within the cannula and identified transverse carpal ligament ensuring the median nerve was not visualized within the cannula. I triangulated distally with a 25-gauge needle identifying the distal aspect of the transverse carpal ligament, to ensure protection of the superficial palmar arch. The arthroscopic knife was used to incise the transverse carpal ligament under direct visualization with the arthroscopic camera. Any excess transverse fibers that remained after the first past were carefully released with a repeat pass. The median nerve was then directly visualized radially without disruption. Once this was completed I placed the #3 dilator and assured I got complete release of the transverse carpal ligament without residual compression. The median nerve was directly visualized and free of any overlying compression. I then turned my attention to release of the volar antebrachial fascia proximally. Once again a Morton was used to open the wound and I proceeded with cannula #1 to #3. The arthroscope was introduced into the cannula and under direct visualization the volar antebrachial fascia was released. Once this was complete I copiusly irrigated the wound with normal saline. The skin incision was closed with 4-0 Monocryl subcutaneous and a running subcuticular 4-0 Monocryl. This was reinforced with Dermabond and Steri -Strips. Sterile, 4 x 4's and a Chandra bandage was placed loosely. Sponge counts , instrument counts and needle counts were correct. The was no intraoperative complications patient tolerated the procedure well and was stable to PACU.
== END 2017-10-11 12:40 | disposition home or self-care (01) ==
LOC: OROUT 08:36
PROVIDERS: ATTEND Orthopaedic Surgery
PROC: 01N54ZZ Release Median Nerve, Percutaneous Endoscopic Approach (ICD-10-PCS; principal; 2017-10-11 10:30)
DX: G56.02 Carpal tunnel syndrome, left upper limb (principal); I10 Essential (primary) hypertension; E11.9 Type 2 diabetes mellitus without complications; I49.9 Cardiac arrhythmia, unspecified; I48.91 Unspecified atrial fibrillation; Z79.01 Long term (current) use of anticoagulants; Z79.899 Other long term (current) drug therapy; Z79.84 Long term (current) use of oral hypoglycemic drugs; Z85.3 Personal history of malignant neoplasm of breast
CPT/HCPCS: 93005; 36415 ×2; 82947; 84132; 85025; 85610; 85730; 80048; 81001; 83036; 71046; 93010; 29848; J2250; J3490 ×2; J1100; J3010; J2001; J2765; J2405; J2704; S0028; J0690; 1810

== ENCOUNTER → 2017-10-31 | Outpatient (CLI) | payer MEDICARE ==
[2017-10-31 11:52] LABS: INTERNATIONAL RATION (INR) 1.79; PROTHROMBIN TIME 21.6 SEC (11.4-15.4)
[2017-10-31 12:10] LABS: ALANINE AMINOTRANSFERASE 22 U/L (9-52); ALKALINE PHOSPHATASE 44 U/L (38-126); ANION GAP 10 (5-19); ASPARTATE AMINO TRANSFERASE 23 U/L (14-36); BILIRUBIN,DIRECT 0.2 mg/dL (0.0-0.4); BILIRUBIN,TOTAL 0.4 mg/dL (0.2-1.3); BLOOD UREA NITROGEN 34 mg/dL (7-20); CALCIUM 9.9 mg/dL (8.4-10.2); CARBON DIOXIDE 29 mmol/L (22-30); CHLORIDE 105 mmol/L (98-107); CHOLESTEROL 168.34 mg/dL (0-200); GLUCOSE 112 mg/dL (75-110); POTASSIUM 4.7 mmol/L (3.6-5.0); SODIUM 143.6 mmol/L (137-145); TOTAL PROTEIN 6.6 g/dL (6.3-8.2); TRIGLYCERIDES 248 mg/dL (<150)
[2017-10-31 12:25] LABS: DIRECT LDL 78 mg/dL (<100); VLDL CHOLESTEROL 49.6 mg/dL (10-31)
== END ==
LOC: OD 10:55
PROVIDERS: ATTEND Specialist
DX: I48.2 Chronic atrial fibrillation (principal); Z79.01 Long term (current) use of anticoagulants; E78.5 Hyperlipidemia, unspecified
CPT/HCPCS: 36415; 80053; 80061; 85610

== ENCOUNTER → 2017-11-14 | Outpatient (CLI) | payer MEDICARE ==
[2017-11-14 09:06] LABS: ANION GAP 12 (5-19); BLOOD UREA NITROGEN 28 mg/dL (7-20); CARBON DIOXIDE 28 mmol/L (22-30); CHLORIDE 103 mmol/L (98-107); GLUCOSE 112 mg/dL (75-110); INTERNATIONAL RATION (INR) 2.41; POTASSIUM 4.7 mmol/L (3.6-5.0); PROTHROMBIN TIME 27.4 SEC (11.4-15.4); SODIUM 143.3 mmol/L (137-145)
== END ==
LOC: OD 08:13
PROVIDERS: ATTEND Specialist
DX: N18.4 Chronic kidney disease, stage 4 (severe) (principal); Z79.01 Long term (current) use of anticoagulants; E55.9 Vitamin D deficiency, unspecified; N25.81 Secondary hyperparathyroidism of renal origin; I48.2 Chronic atrial fibrillation
CPT/HCPCS: 36415; 80048; 82306; 83970; 85610

== ENCOUNTER → 2017-12-05 | Outpatient (CLI) | payer MEDICARE ==
[2017-12-05 10:34] LABS: INTERNATIONAL RATION (INR) 3.33; PROTHROMBIN TIME 35.3 SEC (11.4-15.4)
== END ==
LOC: OD 09:23
PROVIDERS: ATTEND Specialist
DX: I48.2 Chronic atrial fibrillation (principal); Z79.01 Long term (current) use of anticoagulants
CPT/HCPCS: 36415; 85610

== ENCOUNTER → 2017-12-19 | Outpatient (CLI) | payer MEDICARE ==
[2017-12-19 09:51] LABS: INTERNATIONAL RATION (INR) 2.33; PROTHROMBIN TIME 26.7 SEC (11.4-15.4)
== END ==
LOC: OD 08:30
PROVIDERS: ATTEND Specialist
DX: I48.2 Chronic atrial fibrillation (principal); Z79.01 Long term (current) use of anticoagulants; E78.5 Hyperlipidemia, unspecified; Z79.899 Other long term (current) drug therapy
CPT/HCPCS: 36415; 85610

== ENCOUNTER → 2018-01-06 | Outpatient (CLI) | payer MEDICARE ==
[2018-01-06 11:43] LABS: INTERNATIONAL RATION (INR) 2.74; PROTHROMBIN TIME 30.3 SEC (11.4-15.4)
== END ==
LOC: OD 10:30
PROVIDERS: ATTEND Specialist
DX: I48.2 Chronic atrial fibrillation (principal); Z79.01 Long term (current) use of anticoagulants; E78.5 Hyperlipidemia, unspecified; Z79.899 Other long term (current) drug therapy
CPT/HCPCS: 36415; 85610

== ENCOUNTER → 2018-02-01 | Outpatient (CLI) | payer MEDICARE ==
[2018-02-01 08:43] LABS: INTERNATIONAL RATION (INR) 2.39; PROTHROMBIN TIME 27.2 SEC (11.4-15.4)
== END ==
LOC: OD 07:26
PROVIDERS: ATTEND Specialist
DX: I48.2 Chronic atrial fibrillation (principal); Z79.01 Long term (current) use of anticoagulants
CPT/HCPCS: 36415; 85610

== ENCOUNTER → 2018-03-22 | Outpatient (CLI) | payer MEDICARE ==
[2018-03-22 08:19] LABS: INTERNATIONAL RATION (INR) 4.05; PROTHROMBIN TIME 41.2 SEC (11.4-15.4)
== END ==
LOC: OD 07:30
PROVIDERS: ATTEND Specialist
DX: E78.5 Hyperlipidemia, unspecified (principal); Z79.899 Other long term (current) drug therapy; I48.2 Chronic atrial fibrillation; Z79.01 Long term (current) use of anticoagulants
CPT/HCPCS: 36415; 85610

== ENCOUNTER → 2018-03-27 | Outpatient (CLI) | payer MEDICARE ==
[2018-03-27 12:11] LABS: INTERNATIONAL RATION (INR) 2.06; PROTHROMBIN TIME 24.2 SEC (11.4-15.4)
== END ==
LOC: OD 11:23
PROVIDERS: ATTEND Specialist
DX: I48.2 Chronic atrial fibrillation (principal); Z79.01 Long term (current) use of anticoagulants
CPT/HCPCS: 36415; 85610

== ENCOUNTER 2018-04-24 10:49 | Observation (INO) | payer MEDICARE ==
--- NOTE | 2018-04-24 11:10 | ER Document Report ---
ED General - General Stated Complaint: SHORTNESS OF BREATH Time Seen by Provider: 04/24/18 10:56 TRAVEL OUTSIDE OF THE [place] IN LAST 30 DAYS: No - HPI Onset: Last week Onset/Duration: Gradual, Constant Quality of pain: No pain Notes: Patient is a 82-year-old female that presents to the emergency department for chief complaint of dyspnea on exertion. Patient presents by EMS from primary care office for concerns of congestive heart failure. Patient has had increased dyspnea on exertion for the last week and a half. She states she also feels short of breath when she lies flat. She does endorse increased leg edema. She is on Lasix and denies missing any doses or change to her medication. She is not sure if she has congestive heart failure has a diagnosis. She reports a dry cough but denies any fevers or chills. She denies history of COPD. She denies any chest pain, nausea, vomiting and diaphoresis. Past Medical History: A. fib, diabetes, hypertension, breast cancer Past Surgical History: Bilateral mastectomy Social History: Quit smoking 65 years ago, denies drugs and alcohol Family History: Reviewed and noncontributory for presenting illness Allergies: Reviewed, see documented allergy list. REVIEW OF SYSTEMS: CONSTITUTIONAL : No fever No chills No diaphoresis No recent illness EENT: No vision changes No congestion No sore throat CARDIOVASCULAR: No chest pain No palpitations Peripheral edema RESPIRATORY: shortness of breath No cough No difficulty breathing GASTROINTESTINAL: No abdominal pain No nausea No vomiting No diarrhea GENITOURINARY: No dysuria No hematuria No difficulty urinating MUSCULOSKELETAL: No back pain No leg pain No arm pain SKIN: No rashes No lesions LYMPHATIC: No swollen, enlarged glands. NEUROLOGICAL: No lightheadedness No headache No weakness No paresthesias PSYCHIATRIC: No anxiety No depression PHYSICAL EXAMINATION: Vital signs reviewed, nursing noted reviewed. GENERAL: Well-appearing, well-nourished and in no acute distress. HEAD: Atraumatic, normocephalic. EYES: Eyes appear normal, extraocular movements intact, sclera anicteric, conjunctiva are normal. ENT: nares patent, oropharynx clear without exudates. Moist mucous membranes. NECK: Normal range of motion, supple without lymphadenopathy LUNGS: Breath sounds diminished to auscultation bilaterally and equal. No wheezes rales or rhonchi. HEART: Regular rate and rhythm without murmurs ABDOMEN: Soft, nontender, normoactive bowel sounds. No rebound, guarding, or rigidity. No masses appreciated. EXTREMITIES: Nontender, good range of motion, +2 pitting edema bilateral lower extremities. NEUROLOGICAL: No focal neurological deficits. Moves all extremities spontaneously Motor and sensory grossly intact on exam. PSYCH: Normal mood, normal affect. SKIN: Warm, Dry, normal turgor, no rashes or lesions noted on exposed skin - Related Data Allergies/Adverse Reactions: No Known Allergies Allergy (Verified 04/24/18 11:01) Past Medical History - Social History Smoking Status: Never Smoker Family History: Reviewed & Not Pertinent - Past Medical History Cardiac Medical History: Reports: Hx Hypertension - controlled with meds Denies: Hx Coronary Artery Disease, Hx Heart Attack Pulmonary Medical History: Reports: Hx Pneumonia Denies: Hx Asthma, Hx Bronchitis, Hx COPD Neurological Medical History: Denies: Hx Cerebrovascular Accident, Hx Seizures Musculoskeletal Medical History: 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 Nursing notes reviewed. Patient is resting comfortably and oxygenating well on room air. 04/24/18 13:31 Patient was ambulated on room air. She made it only a few feet before becoming significantly dyspneic and had to sit back down. Her oxygen level stayed above 96% with ambulation. Her chest x-ray shows cardiomegaly with no patient does have a significant elevation in BNP. I suspect undiagnosed congestive heart failure. Patient is requiring echo for further evaluation. She will be admitted to the hospital for further management. Case discussed with Dr. Gutierrez who accepted admission. Patient stable at time of admission. Laboratory 04/24/18 04/24/18 04/24/18 10:56 10:56 10:56 WBC 7.8 RBC 4.02 Hgb 12.6 Hct 37.4 MCV 93 MCH 31.3 MCHC 33.6 RDW 14.3 H Plt Count 200 Seg Neutrophils % 73.6 Lymphocytes % 16.3 Monocytes % 7.8 Eosinophils % 1.4 Basophils % 0.9 Absolute Neutrophils 5.8 Absolute Lymphocytes 1.3 Absolute Monocytes 0.6 Absolute Eosinophils 0.1 Absolute Basophils 0.1 Sodium 142.9 Potassium 5.2 H Chloride 106 Carbon Dioxide 24 Anion Gap 13 BUN 21 H Creatinine 1.83 H Est GFR ( Amer) 32 L Est GFR (Non-Af Amer) 26 L Glucose 74 L Calcium 9.8 Total Bilirubin 0.9 Direct Bilirubin 0.3 Neonat Total Bilirubin Not Reportable Neonat Direct Bilirubin Not Reportable Neonat Indirect Bili Not Reportable AST 36 ALT 39 Alkaline Phosphatase 62 Troponin I < 0.012 NT-Pro-B Natriuret Pep Total Protein 7.1 Albumin 4.2 Urine Color Urine Appearance Urine pH Ur Specific Whipple Urine Protein Urine Glucose (UA) Urine Ketones Urine Blood Urine Nitrite Urine Bilirubin Urine Urobilinogen Ur Leukocyte Esterase Urine WBC (Auto) Urine RBC (Auto) U Hyaline Cast (Auto) Urine Bacteria (Auto) Squamous Epi Cells Auto Urine Mucus (Auto) Urine Ascorbic Acid 04/24/18 04/24/18 10:56 11:47 WBC RBC Hgb Hct MCV MCH MCHC RDW Plt Count Seg Neutrophils % Lymphocytes % Monocytes % Eosinophils % Basophils % Absolute Neutrophils Absolute Lymphocytes Absolute Monocytes Absolute Eosinophils Absolute Basophils Sodium Potassium Chloride Carbon Dioxide Anion Gap BUN Creatinine Est GFR ( Amer) Est GFR (Non-Af Amer) Glucose Calcium Total Bilirubin Direct Bilirubin Neonat Total Bilirubin Neonat Direct Bilirubin Neonat Indirect Bili AST ALT Alkaline Phosphatase Troponin I NT-Pro-B Natriuret Pep 93422 H Total Protein Albumin Urine Color STRAW Urine Appearance SLIGHTLY-CLOUDY Urine pH 6.0 Ur Specific Whipple 1.008 Urine Protein NEGATIVE Urine Glucose (UA) NEGATIVE Urine Ketones NEGATIVE Urine Blood NEGATIVE Urine Nitrite NEGATIVE Urine Bilirubin NEGATIVE Urine Urobilinogen NEGATIVE Ur Leukocyte Esterase MODERATE H Urine WBC (Auto) 8 Urine RBC (Auto) 0 U Hyaline Cast (Auto) 1 Urine Bacteria (Auto) TRACE Squamous Epi Cells Auto 1 Urine Mucus (Auto) RARE Urine Ascorbic Acid NEGATIVE Chest X-Ray 04/24/18 10:53 IMPRESSION: HEART ENLARGED WITHOUT FAILURE. NO OTHER SIGNIFICANT RADIOGRAPHIC FINDING IN THE CHEST. - Vital Signs Vital signs: Temp Pulse Resp BP Pulse Ox 97.8 F 19 137/55 H 97 04/24/18 11:22 04/24/18 12:50 04/24/18 12:50 04/24/18 12:50 - Laboratory Result Diagrams: 04/24/18 10:56 04/24/18 10:56 Laboratory results interpreted by me: 04/24/18 04/24/18 04/24/18 10:56 10:56 10:56 RDW 14.3 H Potassium 5.2 H BUN 21 H Creatinine 1.83 H Est GFR ( Amer) 32 L Est GFR (Non-Af Amer) 26 L Glucose 74 L NT-Pro-B Natriuret Pep 21009 H Ur Leukocyte Esterase 04/24/18 11:47 RDW Potassium BUN Creatinine Est GFR ( Amer) Est GFR (Non-Af Amer) Glucose NT-Pro-B Natriuret Pep Ur Leukocyte Esterase MODERATE H - EKG Interpretation by Me Additional EKG results interpreted by me: 04/24/18 11:09 Interpreted by myself 1057: Atrial fibrillation, rate 69, normal axis, right bundle branch block, prolonged QTC at 506, no significant change from 10/07/17 Discharge - Discharge Clinical Impression: Peripheral edema Dyspnea Qualifiers: Dyspnea type: unspecified Qualified Code(s): R06.00 - Dyspnea, unspecified Condition: Stable Disposition: ADMITTED OBSERVATION Admitting Provider: Hospitalist Unit Admitted: Telemetry
[2018-04-24 11:18] LABS: ABSOLUTE BASOPHILS # (AUTO) 0.1 10^3/uL (0.0-0.2); ABSOLUTE EOSINOPHILS # (AUTO) 0.1 10^3/uL (0.0-0.6); ABSOLUTE LYMPHOCYTES (AUTO) 1.3 10^3/uL (0.5-4.7); ABSOLUTE MONOCYTES (AUTO) 0.6 10^3/uL (0.1-1.4); ABSOLUTE NEUT (AUTO) 5.8 10^3/uL (1.7-8.2); BASOPHILS % (AUTO) 0.9 % (0-2); EOSINOPHILS % (AUTO) 1.4 % (0-6); HEMATOCRIT 37.4 % (36.0-47.0); HEMOGLOBIN 12.6 g/dL (12.0-15.5); LYMPHOCYTES % (AUTO) 16.3 % (13-45); MEAN CORPUSCULAR HEMOGLOBIN 31.3 pg (27.0-33.4); MEAN CORPUSCULAR HGB CONC 33.6 g/dL (32.0-36.0); MEAN CORPUSCULAR VOLUME 93 fl (80-97); MONOCYTES % (AUTO) 7.8 % (3-13); PLATELET COUNT 200 10^3/uL (150-450); RED BLOOD COUNT 4.02 10^6/uL (3.72-5.28); RED CELL DISTRIBUTION WIDTH 14.3 % (11.5-14.0); SEGMENTED NEUTROPHILS % (AUTO) 73.6 % (42-78); TOTAL CELLS COUNTED % (AUTO) 100 %; WHITE BLOOD COUNT 7.8 10^3/uL (4.0-10.5)
--- NOTE | 2018-04-24 11:29 | EKG REPORT ---
SEVERITY:- ABNORMAL ECG - ATRIAL FIBRILLATION RIGHT BUNDLE BRANCH BLOCK : Confirmed by: Elisha Sheridan MD 24-Apr-2018 11:28:33
[2018-04-24 11:47] LABS: ALANINE AMINOTRANSFERASE 39 U/L (9-52); ALBUMIN 4.2 g/dL (3.5-5.0); ALKALINE PHOSPHATASE 62 U/L (38-126); ANION GAP 13 (5-19); ASPARTATE AMINO TRANSFERASE 36 U/L (14-36); BILIRUBIN,DIRECT 0.3 mg/dL (0.0-0.4); BILIRUBIN,TOTAL 0.9 mg/dL (0.2-1.3); BLOOD UREA NITROGEN 21 mg/dL (7-20); CALCIUM 9.8 mg/dL (8.4-10.2); CARBON DIOXIDE 24 mmol/L (22-30); CHLORIDE 106 mmol/L (98-107); GLUCOSE 74 mg/dL (75-110); POTASSIUM 5.2 mmol/L (3.6-5.0); SODIUM 142.9 mmol/L (137-145); TOTAL PROTEIN 7.1 g/dL (6.3-8.2)
[2018-04-24 12:03] LABS: APPEARANCE,URINE SLIGHTLY-CLOUDY; BILIRUBIN,URINE NEGATIVE (NEGATIVE); COLOR,URINE STRAW; GLUCOSE, URINE NEGATIVE (NEGATIVE); KETONES,URINE NEGATIVE (NEGATIVE); LEUKOCYTE ESTERASE,URINE MODERATE (NEGATIVE); NITRITE,URINE NEGATIVE (NEGATIVE); PROTEIN,URINE NEGATIVE (NEGATIVE); URINE SPECIFIC GRAVITY 1.008; UROBILINOGEN,URINE NEGATIVE mg/dL (<2.0)
--- NOTE | 2018-04-24 13:02 | RADIOLOGY REPORT (SQ) ---
EXAM DESCRIPTION: CHEST SINGLE VIEW COMPLETED DATE/TIME: 04/24/2018 11:33 am REASON FOR STUDY: bed 17 db COMPARISON: None. NUMBER OF VIEWS: One view. TECHNIQUE: Single frontal radiographic view of the chest acquired. LIMITATIONS: None. FINDINGS: LUNGS AND PLEURA: No opacities, masses or pneumothorax. No pleural effusion. MEDIASTINUM AND HILAR STRUCTURES: No masses. Contour normal. HEART AND VASCULAR STRUCTURES: Heart enlarged without failure. Normal vasculature. BONES: No acute findings. HARDWARE: None in the chest. OTHER: No other significant finding. IMPRESSION: HEART ENLARGED WITHOUT FAILURE. NO OTHER SIGNIFICANT RADIOGRAPHIC FINDING IN THE CHEST. TECHNICAL DOCUMENTATION: JOB ID: [id number] [employer]- All Rights Reserved Reading location - IP/workstation name: [facility]-[email or web address]
[2018-04-24 14:35] LABS: PROTHROMBIN TIME 31.7 SEC (11.4-15.4)
[2018-04-24] MEDS: FUROSEMIDE INJ/PF 40 MG/4 ML SDV IV SCH (15:05)
--- NOTE | 2018-04-24 15:45 | PDOC H&P ---
History of Present Illness Admission Date/PCP: 04/24/18 13:53 MILVIA RED MD Patient complains of: SOB, pedal edema History of Present Illness: TWAN ANGELES is a 82 year old female with a PMH of congestive heart failure (unknown EF), non-insulin dependent DM type 2, hypertension, chronic atrial fibrillation on coumadin and CKD 4 who presented with increasing SOB and leg swelling. Patient says she has been having progressive SOB over the past 10-11 days associated with worsening bipedal swelling which has increased from her baseline edema. She also has associated orthopnea. She uses a reclining bed and always sleeps upright/inclined. She does say she is not able to tolerate lying flat. She denies chest pain or palpitations. She says she is compliant to her dietary restrictions and is compliant with her medications. She follows up at [facility] and says her last echo was done last year. Past Medical History Cardiac Medical History: Reports: Congestive Heart Failure, Hypertension - controlled with meds Denies: Coronary Artery Disease, Myocardial Infarction Pulmonary Medical History: Reports: Pneumonia Denies: Asthma, Bronchitis, Chronic Obstructive Pulmonary Disease (COPD) Neurological Medical History: Denies: Seizures Endocrine Medical History: Reports: Diabetes Mellitus Type 2 Musculoskeltal Medical History: Reports: 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 Hematology: Denies: Anemia Past Surgical History Past Surgical History: Reports: Mastectomy - LEFT BREAST, Orthopedic Surgery - RIGHT KNEE Social History Smoking Status: Never Smoker Family History Family History: Reviewed & Not Pertinent Parental Family History Reviewed: Yes - no premature CAD Children Family History Reviewed: No Sibling(s) Family History Reviewed.: No Medication/Allergy Home Medications: Atenolol 50 mg PO QAM 12/01/16 Calcium Carbonate [Calcium] 1,030 mg PO DAILY 12/01/16 Nifedipine [Nifedipine ER] 90 mg PO DAILY 12/01/16 Pravastatin Sodium [Pravachol] 20 mg PO QPM 12/01/16 Sitagliptin Phosphate [Januvia 50 mg Tablet] 50 mg PO DAILY 12/01/16 Valsartan/Hydrochlorothiazide [Valsartan-Hctz 320-12.5 mg Tab] 1 each PO DAILY 12/01/16 Warfarin Sodium 4 mg PO QPM 12/01/16 Spironolactone 25 mg PO DAILY 12/07/16 Atenolol [Tenormin 50 mg Tablet] 25 mg PO QHS 04/24/18 Glipizide [Glipizide ER] 5 mg PO DAILY 04/24/18 Warfarin Sodium [Coumadin 4 mg Tablet] 6 mg PO TU@1800 04/24/18 Allergies/Adverse Reactions: No Known Allergies Allergy (Verified 04/24/18 11:01) Review of Systems All systems: reviewed and no additional remarkable complaints except as stated - as mentioned in HPI Physical Exam Vital Signs: Temp Pulse Resp BP Pulse Ox 97.8 F 25 H 138/81 H 96 04/24/18 11:22 04/24/18 13:01 04/24/18 13:01 04/24/18 13:01 General appearance: PRESENT: no acute distress, well-developed, well-nourished Head exam: PRESENT: atraumatic, normocephalic Eye exam: PRESENT: conjunctiva pink, EOMI, PERRLA. ABSENT: scleral icterus Ear exam: PRESENT: normal external ear exam Mouth exam: PRESENT: moist, tongue midline Neck exam: PRESENT: JVD - slightly distended neck veins. ABSENT: carotid bruit , lymphadenopathy, thyromegaly Respiratory exam: PRESENT: clear to auscultation mariya. ABSENT: rales, rhonchi, wheezes Cardiovascular exam: PRESENT: irregular rhythm Pulses: PRESENT: normal dorsalis pedis pul GI/Abdominal exam: PRESENT: normal bowel sounds, soft. ABSENT: distended, guarding, mass, organolmegaly, rebound, tenderness Rectal exam: PRESENT: deferred Extremities exam: PRESENT: +2 edema Neurological exam: PRESENT: alert, awake, oriented to person, oriented to place , oriented to time, oriented to situation, CN II-XII grossly intact. ABSENT: motor sensory deficit Results Impressions: Chest X-Ray 04/24/18 10:53 IMPRESSION: HEART ENLARGED WITHOUT FAILURE. NO OTHER SIGNIFICANT RADIOGRAPHIC FINDING IN THE CHEST. Assessment & Plan - Diagnosis (1) CHF exacerbation Is this a current diagnosis for this admission?: Yes Plan: No echo on record. Possibly systolic heart failure. Will order an echo. Will start IV Lasix 40 mg daily. She takes 20 mg PO lasix at home. Strict I&Os q6h. Sodium and fluid restriction. (2) Chronic atrial fibrillation Is this a current diagnosis for this admission?: Yes Plan: Patient is in Afib, rate-controlled in the 70s. She is on coumadin at home. Will check INR. (3) CKD (chronic kidney disease) stage 4, GFR 15-29 ml/min Is this a current diagnosis for this admission?: Yes Plan: Patient has CKD 4 and she says she sees Dr. Thomas for her this. She understands that she needs diuretics and that this could potentially worsen her renal function. Will recheck BMP tomorrow morning. - Time Time Spent: 30 to 50 Minutes
--- NOTE | 2018-04-24 16:51 | Progress Note ---
Provider Note Provider Note: Discussed code status with patient with son (surrogate decision maker) on bedside. She says she is a Full Code.
[2018-04-24] MEDS ORDERED: WARFARIN SODIUM 4 MG TABLET PO ONE (19:00)
[2018-04-24] MEDS ORDERED: DEXTROSE 40% GEL 15 GM TUBE PO PRN ×2 (19:06)
[2018-04-24] MEDS ORDERED: GLUCAGON,HUMAN RECOMB 1 MG INJ IM PRN (19:06)
[2018-04-24] MEDS ORDERED: DEXTROSE 50%-WATER 25 GM/50 ML DISP.SYRIN IV PRN ×2 (19:06)
[2018-04-24] MEDS ORDERED: INSULIN LISPRO 100 UNIT/ML 3 ML VIAL SUBCUT PRN (19:06)
--- NOTE | 2018-04-24 21:20 | XCELERA REPORT ---
[address] [address] Transthoracic Echocardiogram Report Name: TWAN ANGELES Age: 82 yrs Gender: Female : 1935 Patient Status: Inpatient Patient Location: [address] [place], [place] [id number] Study Date: 04/24/2018 05:58 PM Height: 60 in Weight: 175 lb BSA: 1.8 m2 Procedure: A complete two-dimensional transthoracic echocardiogram was performed (2D, M-mode, spectral and color flow Doppler). The study was technically difficult with many images being suboptimal in quality. Reason For Study: CHF exacerbation Ordering Physician: SUZY BAKER Performed By: Ekaterina Hernandez Interpretation Summary The Ejection Fraction estimate is 45-50% Left ventricular systolic function is mildly reduced. There is mild concentric left ventricular hypertrophy. The left ventricle is grossly normal size. LV diastolic function could not be adequately assessed. Wall motion cannot be accurately commented on, but no definite regional wall motion abnormalities noted. The right ventricular systolic function is normal. The right ventricle is borderline dilated. The right atrium is moderately dilated. The left atrium is moderately dilated. There is no mitral valve stenosis. There is a mild amount of mitral regurgitation There is a peak gradient of 25 mm of Hg. There is a mild to moderate amount of aortic regurgitation There is a moderate amount of tricuspid regurgitation There is moderate pulmonary hypertension by echo Right ventricular systolic pressure is estimated to be elevated at 40-50mmHg. There is no pericardial effusion. The study was technically difficult with many images being suboptimal in quality. MMode/2D Measurements & Calculations RVDd: 2.9 cm LVIDd: 4.7 cm FS: 13.2 % Ao root diam: 2.6 cm IVSd: 1.1 cm LVIDs: 4.1 cm EDV(Teich): 101.7 ml Ao root area: 5.5 cm2 LVPWd: 1.1 cm ESV(Teich): 72.9 ml LA dimension: 3.6 cm EF(Teich): 28.3 % Doppler Measurements & Calculations MV E max savannah: MV P1/2t max savannah: Ao V2 max: AI max savannah: 145.6 cm/sec 153.4 cm/sec 106.8 cm/sec 179.0 cm/sec MV P1/2t: 52.5 msec Ao max PG: AI max PG: MVA(P1/2t): 4.2 cm2 4.8 mmHg 12.8 mmHg MV dec slope: Ao V2 mean: AI dec slope: 98.0 cm/sec 176.4 cm/sec2 855.8 cm/sec2 Ao mean PG: AI P1/2t: MV dec time: 4.0 mmHg 297.2 msec 0.16 sec Ao V2 VTI: 35.2 cm LV V1 max PG: PA V2 max: PI end-d savannah: TR max savannah: 3.2 mmHg 101.8 cm/sec 107.2 cm/sec 294.5 cm/sec LV V1 mean PG: PA max P.1 mmHg TR max P.6 mmHg 34.7 mmHg LV V1 max: 89.9 cm/sec LV V1 mean: 59.2 cm/sec LV V1 VTI: 24.8 cm AV P1/2t-pr_phl: MV P1/2t-pr_phl: 606.0 msec 52.5 msec Left Ventricle The left ventricle is grossly normal size. There is mild concentric left ventricular hypertrophy. Left ventricular systolic function is mildly reduced. The Ejection Fraction estimate is 45-50%. LV diastolic function could not be adequately assessed. Wall motion cannot be accurately commented on, but no definite regional wall motion abnormalities noted. Right Ventricle The right ventricle is borderline dilated. There is normal right ventricular wall thickness. The right ventricular systolic function is normal. Atria The right atrium is moderately dilated. The left atrium is moderately dilated. Interarterial septum not well visualized and not well dopplered. Cannot comment on ASD/PFO presence. Mitral Valve There is mild mitral leaflet calcification. There is moderate mitral annular calcification. There is no mitral valve stenosis. There is a mild amount of mitral regurgitation. Aortic Valve The aortic valve is moderately calcified. There is mild to moderate aortic stenosis. There is a peak gradient of 25 mm of Hg. There is a mild to moderate amount of aortic regurgitation. Tricuspid Valve The tricuspid valve is not well visualized, but is grossly normal. There is no tricuspid stenosis. There is a moderate amount of tricuspid regurgitation. There is moderate pulmonary hypertension by echo. Right ventricular systolic pressure is estimated to be elevated at 40-50mmHg. Pulmonic Valve The pulmonic valve is not well visualized. Great Vessels The aortic root is not well visualized. The inferior vena cava was not well visualized. Effusions There is no pericardial effusion. Incidental Findings Consider alternative methods to evaluate LVEF such as MUGA scan, cardiac MRI, or cardiac CTA. : SUZY BAKER Shyamal
[2018-04-24] MEDS ORDERED: ATENOLOL 50 MG TABLET PO SCH (22:00)
--- NOTE | 2018-04-25 00:56 | Physician Advisory Note ---
Physician Advisor ProgressNote .: Pursuant to the plan for [facility], I have reviewed the medical record for this patient. Physician Advisor Statement: Very nice documentation of acute CHF, likely systolic, w/findings that support this dx. Please consider documenting, if you agree: 1. "mod pulmonary hypertension" 2. Is Lasix dose chosen lower than you otherwise would give, due to concerns about worsening impact on kidney dz? (Or was it felt that just 1-2 doses of 40mg IV would be enough before she' d be ready for d/c?, or ...) - Asking this to get clarification in record of attending level of concern/severity of illness, to determine if status change may be appropriate or not. 3. Any clinical concerns that make pt not safe for d/c tonight. 4. ?"Adverse effect of spironolactone, causing hyperkalemia"? Status: [facility] Medicare Advantage pt (not "regular Medicare". 2nd [place] in hospital is not the main deciding factor for Inpt unless severity of illness/intensity of service clearly warranting change to Inpt). In w/acute systolic CHF exac, appropriately brought in initially as Obs. - Will f/u on intensity of service & severity of illness factors later today to re-eval for possible status change appropriateness. Thanks! CK
[2018-04-25 07:02] LABS: ANION GAP 13 (5-19); BLOOD UREA NITROGEN 22 mg/dL (7-20); CALCIUM 9.3 mg/dL (8.4-10.2); CARBON DIOXIDE 23 mmol/L (22-30); CHLORIDE 107 mmol/L (98-107); GLUCOSE 41 mg/dL (75-110); POTASSIUM 4.3 mmol/L (3.6-5.0); SODIUM 143.3 mmol/L (137-145)
[2018-04-25] MEDS ORDERED: ATENOLOL 50 MG TABLET PO SCH (08:00)
[2018-04-25] MEDS ORDERED: VALSARTAN 160 MG TABLET PO SCH (10:00)
[2018-04-25] MEDS ORDERED: GLIPIZIDE XL 5 MG TAB.ER.24 PO SCH (10:00)
[2018-04-25] MEDS ORDERED: (PENDING PHARMACY ID) (Valsartan/Hydrochlorothiazide [Valsartan-Hctz 320-12.5 Mg Tab] 1 EA PO SCH (10:00)
[2018-04-25] MEDS ORDERED: NIFEDIPINE 30 MG TAB.ER.24 PO SCH (10:00)
[2018-04-25] MEDS ORDERED: SITAGLIPTIN PHOSPHATE 50 MG TABLET PO SCH (10:00)
[2018-04-25] MEDS ORDERED: HYDROCHLOROTHIAZIDE 25 MG TABLET PO SCH (10:00)
[2018-04-25] MEDS: FUROSEMIDE INJ/PF 40 MG/4 ML SDV IV SCH (10:46)
--- NOTE | 2018-04-25 15:01 | PDOC DISCHARGE SUMMARY ---
General - Admit/Disc Date/PCP Admission Date/Primary Care Provider: 04/24/18 13:53 MILVIA RED MD Discharge Date: 04/25/18 - Discharge Diagnosis (1) Acute on chronic systolic CHF (congestive heart failure) Is this a current diagnosis for this admission?: Yes (2) CKD (chronic kidney disease) stage 4, GFR 15-29 ml/min Is this a current diagnosis for this admission?: Yes (3) Chronic atrial fibrillation Is this a current diagnosis for this admission?: Yes (4) Hypertension Is this a current diagnosis for this admission?: Yes (5) Anemia in CKD (chronic kidney disease) Is this a current diagnosis for this admission?: Yes (6) Secondary hyperparathyroidism Is this a current diagnosis for this admission?: Yes (7) Dyslipidemia Is this a current diagnosis for this admission?: Yes (8) Diabetes type 2, controlled Is this a current diagnosis for this admission?: Yes (9) Pulmonary hypertension Is this a current diagnosis for this admission?: Yes - Additional Information Resuscitation Status: Full Code Discharge Diet: Cardiac, Diabetic Discharge Activity: Activity As Tolerated, Balance Activity w/Rest, Weigh Daily Prescriptions: Cephalexin Monohydrate [Keflex 250 mg Capsule] 250 mg PO Q8 4 Days #12 capsule Home Medications: Atenolol 50 mg PO QAM 12/01/16 Calcium Carbonate [Calcium] 1,030 mg PO DAILY 12/01/16 Nifedipine [Nifedipine ER] 90 mg PO DAILY 12/01/16 Pravastatin Sodium [Pravachol] 20 mg PO QPM 12/01/16 Sitagliptin Phosphate [Januvia 50 mg Tablet] 50 mg PO DAILY 12/01/16 Valsartan/Hydrochlorothiazide [Valsartan-Hctz 320-12.5 mg Tab] 1 each PO DAILY 12/01/16 Warfarin Sodium 4 mg PO QPM 12/01/16 Spironolactone 25 mg PO DAILY 12/07/16 Atenolol [Tenormin 50 mg Tablet] 25 mg PO QHS 04/24/18 Glipizide [Glipizide ER] 5 mg PO DAILY 04/24/18 Warfarin Sodium [Coumadin 4 mg Tablet] 6 mg PO TU@1800 04/24/18 Cephalexin Monohydrate [Keflex 250 mg Capsule] 250 mg PO Q8 4 Days #12 capsule 04/25/18 History of Present Illness Patient complains of: Shortness of breath. History of Present Illness: TWAN ANGELES is a 82 year old female with PMH of CHF, diabetes type 2, hypertension, chronic atrial fibrillation on coumadin and CKD 4 presented to ED with worsening shortness of breath and lower extremity swelling. She stated she has been been having progressive SOB over the past 10-11 days associated with worsening bilateral lower extremity as well as orthopnea and PND. She has been sleeping on a recliner due to worsening volume overload. She had a stated that she was compliant with her medications and diet. She follows up at [facility] and says her last echo was done last year. Hospital Course Hospital Course: (1) Acute on chronic systolic CHF (congestive heart failure) HFrEF of 45-50% based on 2D echo on 04/24/2018. Negative fluid balance. Continue IV Lasix and adjust dose as guided by vitals Continued beta-josé manuel and PAULINA guided by vitals. Up titrate as tolerated. Continue volume restriction and cardiac diet. (2) CKD (chronic kidney disease) stage 4, GFR 15-29 ml/min Likely due to underlying diabetes and hypertension. Creatinine and electrolytes stable. Monitored electrolytes and volume status. Outpatient nephrology follow-up. (3) Chronic atrial fibrillation [id number] Score 5. Rate controlled. INR 2.9 on admission. Continue warfarin with an INR goal of 2-2.5. (4) Hypertension Controlled. Continue ARB, beta blockers, calcium channel josé manuel and hydrochlorothiazide. Adjust meds as needed. Outpatient PCP follow-up. (5) Anemia in CKD (chronic kidney disease) Microcytic. Hemoglobin on admission 12.6. Denies any external source of bleeding. Monitor H&H. Supportive transfusions. Outpatient nephrology follow-up. (6) Secondary hyperparathyroidism Secondary to CKD. PTH 372 on 03/17/2018. Calcium within normal limits. Outpatient nephrology follow-up for possible initiation of sevelamer. (7) Dyslipidemia Continue statins. Lifestyle and diet modification. (8) Diabetes type 2, controlled Controlled. A1c on admission 5.7. Hold oral hypoglycemics. Continued on sliding scale insulin. Outpatient PCP follow-up. Diabetic diet. Resume oral hypoglycemics upon discharge. (9) Pulmonary hypertension RVSP 40-50 mmHg based on echo on 04/24/2018. Monitor volume status. Outpatient pulmonology follow-up. Physical Exam Vital Signs: Temp Pulse Resp BP Pulse Ox 98.3 F 70 20 130/50 H 96 04/25/18 11:23 04/25/18 14:00 04/25/18 11:23 04/25/18 11:23 04/25/18 11:23 Intake & Output 04/24/18 04/25/18 04/26/18 06:59 06:59 06:59 Intake Total 218 Output Total 1600 Balance -1382 Weight 76.5 kg General appearance: PRESENT: no acute distress, well-developed, well-nourished Head exam: PRESENT: atraumatic, normocephalic Eye exam: PRESENT: conjunctiva pink, EOMI, PERRLA. ABSENT: scleral icterus Ear exam: PRESENT: normal external ear exam Mouth exam: PRESENT: moist, tongue midline Neck exam: ABSENT: carotid bruit, JVD, lymphadenopathy, thyromegaly Respiratory exam: PRESENT: clear to auscultation mariya. ABSENT: rales, rhonchi, wheezes Cardiovascular exam: PRESENT: RRR. ABSENT: diastolic murmur, rubs, systolic murmur Pulses: PRESENT: normal dorsalis pedis pul Vascular exam: PRESENT: normal capillary refill GI/Abdominal exam: PRESENT: normal bowel sounds, soft. ABSENT: distended, guarding, mass, organolmegaly, rebound, tenderness Rectal exam: PRESENT: deferred Extremities exam: PRESENT: full ROM. ABSENT: calf tenderness, clubbing, pedal edema Neurological exam: PRESENT: alert, awake, oriented to person, oriented to place , oriented to time, oriented to situation, CN II-XII grossly intact. ABSENT: motor sensory deficit Psychiatric exam: PRESENT: appropriate affect, normal mood. ABSENT: homicidal ideation, suicidal ideation Skin exam: PRESENT: dry, intact, warm. ABSENT: cyanosis, rash Results Laboratory Results: 04/25/18 05:17 04/25/18 05:17 Sodium 143.3 Potassium 4.3 Chloride 107 Carbon Dioxide 23 Anion Gap 13 BUN 22 H Creatinine 1.92 H Est GFR ( Amer) 30 L Est GFR (Non-Af Amer) 25 L Glucose 41 L Calcium 9.3 Impressions: Chest X-Ray 04/24/18 10:53 IMPRESSION: HEART ENLARGED WITHOUT FAILURE. NO OTHER SIGNIFICANT RADIOGRAPHIC FINDING IN THE CHEST. Qualifiers - * PATIENT BEING DISCHARGED WITH ANY OF THE FOLLOWING DIAGNOSIS: No VTE patient discharged on overlapping Therapy?: Yes
[2018-04-25 16:00] VITALS: BP 122/49
== END 2018-04-25 16:37 | disposition home health service (06) ==
LOC: ER 10:49 → EH 13:53 → 4N 16:14
PROVIDERS: ADMIT Internal Medicine; ATTEND Internal Medicine
DX: I13.0 Hypertensive heart and chronic kidney disease with heart failure and stage 1 through stage 4 chronic kidney disease, or unspecified chronic kidney disease (principal); I50.23 Acute on chronic systolic (congestive) heart failure; N18.4 Chronic kidney disease, stage 4 (severe); E11.22 Type 2 diabetes mellitus with diabetic chronic kidney disease; I48.2 Chronic atrial fibrillation; E78.5 Hyperlipidemia, unspecified; I27.20 Pulmonary hypertension, unspecified; D63.1 Anemia in chronic kidney disease; N25.81 Secondary hyperparathyroidism of renal origin; R05 Cough; I45.10 Unspecified right bundle-branch block; R53.1 Weakness; Z79.899 Other long term (current) drug therapy; Z79.02 Long term (current) use of antithrombotics/antiplatelets; Z90.12 Acquired absence of left breast and nipple; Z80.3 Family history of malignant neoplasm of breast; Z87.891 Personal history of nicotine dependence; Z98.890 Other specified postprocedural states
CPT/HCPCS: 93005; 99285; 36415 ×2; 87086; 82962 ×2; 85025; 85610; 80048; 80053; 81001; 84484; 83036; 83880; 93306; 71045; 93010; 97116; 97163; G0378 ×3; A9270 ×5; J1940 ×2; J3490 ×2; G8978; G8979; G8980

== ENCOUNTER 2018-04-30 11:10 | Observation (INO) | payer MEDICARE ==
[2018-04-30] MEDS ORDERED: ASPIRIN 81 MG TABLET, CHEWABLE PO ONE (11:29)
--- NOTE | 2018-04-30 11:32 | ER Document Report ---
ED Medical Screen (RME) - General Chief Complaint: Shortness Of Breath Stated Complaint: SHORT OF BREATH Time Seen by Provider: 04/30/18 11:29 Mode of Arrival: Medic Information source: Patient Notes: This is an 82-year-old female with a history of CHF, atrial fibrillation ( Coumadin), chronic kidney disease with a recent admission for decompensated heart failure who presents to the emergency room with worsening shortness of breath, progressive dyspnea on exertion and chest heaviness along with increased weight gain. 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 Rangel/Fatimah Primary care physician: Dr. Red TRAVEL OUTSIDE OF THE [place] IN LAST 30 DAYS: No - Related Data Allergies/Adverse Reactions: No Known Allergies Allergy (Verified 04/24/18 11:01) Past Medical History - Past Medical History Cardiac Medical History: Reports: Hx Congestive Heart Failure, Hx Hypertension - controlled with meds Denies: Hx Coronary Artery Disease, Hx Heart Attack Pulmonary Medical History: Reports: Hx Pneumonia Denies: Hx Asthma, Hx Bronchitis, Hx COPD Neurological Medical History: Denies: Hx Cerebrovascular Accident, Hx Seizures Endocrine Medical History: Reports: Hx Diabetes Mellitus Type 2 Renal/ Medical History: Denies: Hx Peritoneal Dialysis Musculoskeltal Medical History: 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 Past Surgical History: Reports: Hx Mastectomy - LEFT BREAST, Hx Orthopedic Surgery - RIGHT KNEE - Immunizations Hx Diphtheria, Pertussis, Tetanus Vaccination: No History of Influenza Vaccine for 03/2017 - 08/2017 Season: Yes Influenza Administration Date for 03/2017 - 08/2017 Season: 02/25/17 Physical Exam - Vital signs Vitals: Temp Pulse Resp BP Pulse Ox 98.1 F 61 20 131/57 H 98 04/30/18 11:21 04/30/18 11:21 04/30/18 11:21 04/30/18 11:21 04/30/18 11:21 Course - Vital Signs Vital signs: Temp Pulse Resp BP Pulse Ox 98.1 F 61 20 131/57 H 98 04/30/18 11:21 04/30/18 11:21 04/30/18 11:21 04/30/18 11:21 04/30/18 11:21 Doctor's Discharge - Discharge Referrals: MILVIA RED MD [Primary Care Provider] - Follow up as needed
[2018-04-30 12:03] LABS: ABSOLUTE BASOPHILS # (AUTO) 0.1 10^3/uL (0.0-0.2); ABSOLUTE EOSINOPHILS # (AUTO) 0.2 10^3/uL (0.0-0.6); ABSOLUTE LYMPHOCYTES (AUTO) 1.6 10^3/uL (0.5-4.7); ABSOLUTE MONOCYTES (AUTO) 0.8 10^3/uL (0.1-1.4); ABSOLUTE NEUT (AUTO) 4.6 10^3/uL (1.7-8.2); BASOPHILS % (AUTO) 1.3 % (0-2); EOSINOPHILS % (AUTO) 2.2 % (0-6); HEMATOCRIT 37.7 % (36.0-47.0); MEAN CORPUSCULAR HEMOGLOBIN 31.5 pg (27.0-33.4); MEAN CORPUSCULAR HGB CONC 34.3 g/dL (32.0-36.0); MEAN CORPUSCULAR VOLUME 92 fl (80-97); MONOCYTES % (AUTO) 10.7 % (3-13); PLATELET COUNT 228 10^3/uL (150-450); RED BLOOD COUNT 4.12 10^6/uL (3.72-5.28); RED CELL DISTRIBUTION WIDTH 13.9 % (11.5-14.0); SEGMENTED NEUTROPHILS % (AUTO) 63.8 % (42-78); TOTAL CELLS COUNTED % (AUTO) 100 %; WHITE BLOOD COUNT 7.2 10^3/uL (4.0-10.5)
[2018-04-30 12:10] LABS: INTERNATIONAL RATION (INR) 2.91; PROTHROMBIN TIME 31.8 SEC (11.4-15.4)
--- NOTE | 2018-04-30 12:19 | RADIOLOGY REPORT (SQ) ---
EXAM DESCRIPTION: CHEST SINGLE VIEW COMPLETED DATE/TIME: 04/30/2018 12:10 pm REASON FOR STUDY: cp, sob COMPARISON: 04/24/2018. NUMBER OF VIEWS: One view. TECHNIQUE: Single frontal radiographic view of the chest acquired. LIMITATIONS: None. FINDINGS: LUNGS AND PLEURA: No opacities, masses or pneumothorax. No pleural effusion. MEDIASTINUM AND HILAR STRUCTURES: No masses. Contour normal. HEART AND VASCULAR STRUCTURES: Heart enlarged without failure. Normal vasculature. BONES: No acute findings. HARDWARE: None in the chest. OTHER: No other significant finding. IMPRESSION: HEART ENLARGED WITHOUT FAILURE. NO OTHER SIGNIFICANT RADIOGRAPHIC FINDING IN THE CHEST. TECHNICAL DOCUMENTATION: JOB ID: [id number] [employer]- All Rights Reserved Reading location - IP/workstation name: [email or web address]
[2018-04-30 12:54] LABS: ALANINE AMINOTRANSFERASE 15 U/L (9-52); ALBUMIN 4.5 g/dL (3.5-5.0); ALKALINE PHOSPHATASE 64 U/L (38-126); ANION GAP 16 (5-19); ASPARTATE AMINO TRANSFERASE 37 U/L (14-36); BILIRUBIN,DIRECT 0.2 mg/dL (0.0-0.4); BILIRUBIN,TOTAL 0.4 mg/dL (0.2-1.3); BLOOD UREA NITROGEN 32 mg/dL (7-20); CALCIUM 9.8 mg/dL (8.4-10.2); CARBON DIOXIDE 23 mmol/L (22-30); CHLORIDE 103 mmol/L (98-107); CREATINE KINASE 52 U/L (30-135); GLUCOSE 128 mg/dL (75-110); POTASSIUM 5.1 mmol/L (3.6-5.0); SODIUM 141.7 mmol/L (137-145); TOTAL PROTEIN 7.6 g/dL (6.3-8.2)
[2018-04-30 13:07] LABS: TROPONIN I < 0.012 ng/mL
[2018-04-30] MEDS ORDERED: TEMAZEPAM 7.5 MG CAPSULE PO PRN (13:36)
[2018-04-30] MEDS ORDERED: ONDANSETRON 4 MG TAB.RAPDIS PO PRN (13:36)
[2018-04-30] MEDS ORDERED: MAGNESIUM HYDROXIDE SUSP 30 ML UDCUP PO PRN (13:36)
[2018-04-30] MEDS ORDERED: ONDANSETRON HCL INJ/PF 4 MG/2 ML SDV IV PRN (13:36)
[2018-04-30] MEDS ORDERED: MAG HYDROX/AL HYDROX/SIMETH SUSP 30 ML UDCUP PO PRN (13:36)
--- NOTE | 2018-04-30 13:38 | ER Document Report ---
ED General - General Chief Complaint: Shortness Of Breath Stated Complaint: SHORT OF BREATH Time Seen by Provider: 04/30/18 11:29 Mode of Arrival: Medic Notes: Patient says that she is experiencing chest pain since about 10 AM. She was just walking in her house when she suddenly felt a very heavy feeling on the front of her chest as if someone was sitting on her chest. Her legs felt heavy and painful and she also had shortness of breath. Patient was just in this hospital last week for an exacerbation of congestive heart failure. She was discharged 4 days ago. She has known atrial fibrillation and is on Coumadin. Patient has not had a cardiac cath. She has stage IV renal disease. Hypertension. Sees Dr. Sheridan TRAVEL OUTSIDE OF THE [place] IN LAST 30 DAYS: No - Related Data Allergies/Adverse Reactions: No Known Allergies Allergy (Verified 04/24/18 11:01) Past Medical History - General Information source: Patient - Social History Smoking Status: Never Smoker Family History: Reviewed & Not Pertinent Patient has suicidal ideation: No Patient has homicidal ideation: No - Past Medical History Cardiac Medical History: Reports: Hx Atrial Fibrillation, Hx Congestive Heart Failure, Hx Hypertension - controlled with meds Denies: Hx Coronary Artery Disease, Hx Heart Attack Pulmonary Medical History: Reports: Hx Pneumonia Denies: Hx Asthma, Hx Bronchitis, Hx COPD Neurological Medical History: Denies: Hx Cerebrovascular Accident, Hx Seizures Endocrine Medical History: Reports: Hx Diabetes Mellitus Type 2 Renal/ Medical History: Reports: Hx End Stage Renal Disease - Stage IV renal disease Musculoskeletal Medical History: 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 EENT: Denies eye, ear, nose or mouth or throat pain or other symptoms. CARDIOVASCULAR: See HPI. Daughter says that patient has had 3 pound weight gain since yesterday. Swelling of her ankles is more than they are accustomed to seeing. RESPIRATORY: Has had some cough and congestion. Also experiencing shortness of breath. See HPI. GASTROINTESTINAL: Denies abdominal pain or nausea, vomiting, or diarrhea. GENITOURINARY: Denies difficulty or painful urinating, urinary frequency, blood in urine. Daughter says that patient is currently on an antibiotic for UTI. MUSCULOSKELETAL: Denies back or neck pain. Denies joint pain or swelling. SKIN: Denies rash or skin lesions. NEUROLOGICAL: Denies LOC or altered mental status. Denies headache. Denies sensory loss or motor deficits. ALL OTHER SYSTEMS REVIEWED AND NEGATIVE. Physical Exam - Vital signs Vitals: Temp Pulse Resp BP Pulse Ox 98.1 F 61 20 131/57 H 98 04/30/18 11:21 04/30/18 11:21 04/30/18 11:21 04/30/18 11:21 04/30/18 11:21 Interpretation: Normal Notes: PHYSICAL EXAMINATION: GENERAL: Well-appearing, in no acute distress. Vital signs are all normal. HEAD: Atraumatic, normocephalic. EYES: Pupils equal round and reactive to light, extraocular movements intact. ENT: oropharynx clear without exudates. Moist mucous membranes. NECK: Normal range of motion, supple. LUNGS: Breath sounds clear and equal bilaterally. HEART: Irregularly irregular rate and rhythm without murmurs. +1 pitting edema of pretibial area bilaterally. ABDOMEN: Soft, nontender. No guarding or rebound. No masses. BACK: No tenderness throughout entire back. EXTREMITIES: Normal range of motion without pain. Negative Homans bilaterally. NEUROLOGICAL: Normal speech. Normal sensory, motor, and reflex exams. Awake, alert, and oriented x3. Cranial nerves normal. PSYCH: Normal mood, normal affect. SKIN: Warm, dry, no rashes. Course - Re-evaluation Re-evalutation: 04/30/18 13:44 First set of labs were negative. Spoke with hospitalist about patient being admitted for observation and he will be admitting her to telemetry. - Vital Signs Vital signs: Temp Pulse Resp BP Pulse Ox 98.1 F 61 20 131/57 H 98 04/30/18 11:21 04/30/18 11:21 04/30/18 11:21 04/30/18 11:21 04/30/18 11:21 - Laboratory Result Diagrams: 04/30/18 11:40 04/30/18 11:40 Laboratory results interpreted by me: 04/30/18 04/30/18 11:40 11:40 PT 31.8 H Potassium 5.1 H BUN 32 H Creatinine 2.05 H Est GFR ( Amer) 28 L Est GFR (Non-Af Amer) 23 L Glucose 128 H AST 37 H - Diagnostic Test Radiology results interpreted by me: 04/30/18 13:44 Cardiomegaly without significant vascular congestion. - EKG Interpretation by Me Rate: Normal Rhythm: A.Fib [place]/QRS: RBBB Discharge - Discharge Clinical Impression: Chest pain, Dyspnea, Chronic atrial fibrillation Condition: Stable Disposition: ADMITTED OBSERVATION Admitting Provider: Hospitalist Unit Admitted: Telemetry Referrals: MILVIA RED MD [Primary Care Provider] - Follow up as needed
[2018-04-30] MEDS ORDERED: HYDRALAZINE HCL INJ/PF 20 MG/1 ML SDV IV PRN (13:53)
[2018-04-30] MEDS ORDERED: HEPARIN SOD (PORCINE) 5,000 UNIT/ML 1 ML SYRINGE SUBCUT SCH (14:00)
[2018-04-30] MEDS ORDERED: DEXTROSE 50%-WATER 25 GM/50 ML DISP.SYRIN IV PRN ×2 (14:52)
[2018-04-30] MEDS ORDERED: DEXTROSE 40% GEL 15 GM TUBE PO PRN ×2 (14:52)
[2018-04-30] MEDS ORDERED: INSULIN LISPRO 100 UNIT/ML 3 ML VIAL SUBCUT PRN (14:52)
[2018-04-30] MEDS ORDERED: GLUCAGON,HUMAN RECOMB 1 MG INJ IM PRN (14:52)
[2018-04-30] MEDS ORDERED: TORSEMIDE 20 MG TABLET PO ONE (15:30)
[2018-04-30] MEDS ORDERED: NITROGLYCERIN 0.4 MG/TAB 25 TAB/BOTTLE SL PRN (17:19)
[2018-04-30] MEDS ORDERED: MORPHINE SULFATE 10 MG/ML INJ IV PRN ×3 (17:19)
--- NOTE | 2018-04-30 17:22 | PDOC H&P ---
History of Present Illness Admission Date/PCP: MILVIA RED MD Patient complains of: Chest pain History of Present Illness: TWAN ANGELES is a 82 year old female who presented to the emergency room with a 2-hour history of chest pain. She admitted that she was doing normal activities at her home while walking from one room to another she suddenly developed a moderately severe, pressing heaviness on her anterior mid chest that did not radiate and persisted until after she was seen in the emergency room. Her chest pain was accompanied by dyspnea as well as a feeling of mildly painful heaviness/fatigue in her bilateral lower extremities. She denies prior similar episodes and has not identified any aggravating or ameliorating factors for her chest pain. She admits a past medical history positive for congestive heart failure and a hospitalization for that illness 1 week ago. 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 In the emergency room she was found to have an EKG with no acute changes but demonstrating atrial fibrillation with a well- controlled ventricular rate. Her cardiac enzymes were negative x1 and her chest x-ray showed no acute cardiopulmonary findings. She will be admitted to the hospitalist service for further evaluation on inpatient observation status. Past Medical History Cardiac Medical History: Reports: Atrial Fibrillation, Congestive Heart Failure , Hypertension - controlled with meds Denies: Coronary Artery Disease, Myocardial Infarction Pulmonary Medical History: Reports: Pneumonia Denies: Asthma, Bronchitis, Chronic Obstructive Pulmonary Disease (COPD) EENT Medical History: Reports: None Neurological Medical History: Denies: Multiple Sclerosis, Seizures Endocrine Medical History: Reports: Diabetes Mellitus Type 2 Denies: Diabetes Mellitus Type 1, Hyperthyroidism, Hypothyroidism Renal/ Medical History: Reports: End Stage Renal Disease - Stage IV renal disease, Nephrolithiasis, Other - frequent UTI, stress incontinence Malignancy Medical History: Reports: Breast Cancer - S/P left mastectomy + 2 lymphnodes GI Medical History: Reports: Hiatal Hernia, Other - constipation Denies: Cirrhosis, Hepatitis Musculoskeltal Medical History: Reports: 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 Denies: Fibromyalgia Skin Medical History: Denies: Eczema, Psoriasis Psychiatric Medical History: Denies: Alcohol Dependency, Substance Abuse, Tobacco Dependency Traumatic Medical History: Reports: None Hematology: Denies: Anemia, Hemophilia Infectious Medical History: Reports: None Past Surgical History Past Surgical History: Reports: Mastectomy - LEFT BREAST, Orthopedic Surgery - RIGHT KNEE, RIGHT CARPAL TUNNEL, TRIGGER FINGER BILATERAL, Other - "UTERUS WAS LIFTED" UTERINE SUSPENSION PROCEDURE Social History Information Source: Patient Lives with: Family Smoking Status: Former Smoker - smoked for 1 year at age 18-19 Frequency of Alcohol Use: None Hx Recreational Drug Use: No Drugs: None Hx Prescription Drug Abuse: No - Advance Directive Resuscitation Status: Full Code Family History Family History: CAD - SISTER, Hypertension - NUMEROUS RELATIVES Parental Family History Reviewed: Yes Children Family History Reviewed: No Sibling(s) Family History Reviewed.: Yes Medication/Allergy Home Medications: Atenolol 50 mg PO QAM 12/01/16 Calcium Carbonate [Calcium] 1,030 mg PO DAILY 12/01/16 Nifedipine [Nifedipine ER] 90 mg PO DAILY 12/01/16 Pravastatin Sodium [Pravachol] 20 mg PO QPM 12/01/16 Sitagliptin Phosphate [Januvia 50 mg Tablet] 50 mg PO DAILY 12/01/16 Valsartan/Hydrochlorothiazide [Valsartan-Hctz 320-12.5 mg Tab] 1 each PO DAILY 12/01/16 Warfarin Sodium 4 mg PO QPM 12/01/16 Spironolactone 25 mg PO DAILY 12/07/16 Atenolol [Tenormin 50 mg Tablet] 25 mg PO QHS 04/24/18 Glipizide [Glipizide ER] 5 mg PO DAILY 04/24/18 Warfarin Sodium [Coumadin 4 mg Tablet] 6 mg PO TU@1800 04/24/18 Allergies/Adverse Reactions: No Known Allergies Allergy (Verified 04/24/18 11:01) Review of Systems Constitutional: ABSENT: chills, fever(s) Eyes: ABSENT: visual disturbances, other - Ocular pain Ears: ABSENT: hearing changes, other - Ear pain Nose, Mouth, and Throat: ABSENT: mouth pain, sore throat Cardiovascular: PRESENT: as per HPI - Dyspnea, chest pain, dyspnea on exertion, edema - Bilateral lower extremities, other - Dyspnea. ABSENT: orthropnea, palpitations Respiratory: PRESENT: dyspnea. ABSENT: cough, hemoptysis Gastrointestinal: ABSENT: abdominal pain, constipation, diarrhea, heartburn, nausea, vomiting Genitourinary: ABSENT: dysuria, hematuria Musculoskeletal: ABSENT: deformity, joint swelling Integumentary: ABSENT: pruritus, rash Neurological: ABSENT: confusion, convulsions, syncope, tremor(s) Psychiatric: ABSENT: anxiety, depression Endocrine: ABSENT: cold intolerance, heat intolerance Hematologic/Lymphatic: PRESENT: easy bleeding - On warfarin, easy bruising - On warfarin Allergic/Immunologic: ABSENT: seasonal rhinorrhea, other - No insect bite allergies Physical Exam Vital Signs: Temp Pulse Resp BP Pulse Ox 98.1 F 61 20 131/57 H 98 04/30/18 11:21 04/30/18 11:21 04/30/18 11:21 04/30/18 11:21 04/30/18 11:21 Intake & Output 04/28/18 04/29/18 04/30/18 23:59 23:59 22:59 Weight 75.568 kg General appearance: PRESENT: no acute distress, cooperative Head exam: PRESENT: atraumatic, normocephalic Eye exam: ABSENT: conjunctival injection, periorbital swelling, scleral icterus Ear exam: PRESENT: normal external ear exam. ABSENT: bleeding, drainage Mouth exam: PRESENT: moist, neck supple Neck exam: ABSENT: JVD, thyromegaly, tracheal deviation Respiratory exam: PRESENT: clear to auscultation mariya, symmetrical, unlabored. ABSENT: chest wall tenderness Cardiovascular exam: PRESENT: irregular rhythm. ABSENT: bradycardia, clicks, diastolic murmur, gallop, rubs, systolic murmur, tachycardia Pulses: PRESENT: normal radial pulses, normal dorsalis pedis pul Vascular exam: PRESENT: normal capillary refill. ABSENT: pallor GI/Abdominal exam: PRESENT: normal bowel sounds, soft Rectal exam: PRESENT: deferred Extremities exam: PRESENT: +1 edema - Bilateral pretibial surfaces. ABSENT: clubbing, joint swelling, tenderness Musculoskeletal exam: PRESENT: full ROM. ABSENT: deformity, dislocation Neurological exam: PRESENT: alert, oriented to person, oriented to place, oriented to time, oriented to situation, CN II-XII grossly intact. ABSENT: motor sensory deficit Psychiatric exam: PRESENT: appropriate affect, normal mood Skin exam: PRESENT: dry, warm. ABSENT: jaundice, rash, urticaria Results Laboratory Results: 04/30/18 11:40 04/30/18 11:40 04/30/18 04/30/18 11:40 11:40 WBC 7.2 RBC 4.12 Hgb 13.0 Hct 37.7 MCV 92 MCH 31.5 MCHC 34.3 RDW 13.9 Plt Count 228 Seg Neutrophils % 63.8 Lymphocytes % 22.0 Monocytes % 10.7 Eosinophils % 2.2 Basophils % 1.3 Absolute Neutrophils 4.6 Absolute Lymphocytes 1.6 Absolute Monocytes 0.8 Absolute Eosinophils 0.2 Absolute Basophils 0.1 Sodium 141.7 Potassium 5.1 H Chloride 103 Carbon Dioxide 23 Anion Gap 16 BUN 32 H Creatinine 2.05 H Est GFR ( Amer) 28 L Est GFR (Non-Af Amer) 23 L Glucose 128 H Calcium 9.8 Total Bilirubin 0.4 AST 37 H ALT 15 Alkaline Phosphatase 64 Total Protein 7.6 Albumin 4.5 04/30/18 04/30/18 11:40 11:40 Creatine Kinase 52 CK-MB (CK-2) 0.70 Troponin I < 0.012 EKG Comments: EKG interpreted by me reveals atrial fibrillation with a ventricular response rate of 60-70 bpm. A right bundle branch block is noted, no acute changes or changes consistent with cardiac ischemia or injury are noted. Impressions: Chest X-Ray 04/30/18 11:29 IMPRESSION: HEART ENLARGED WITHOUT FAILURE. NO OTHER SIGNIFICANT RADIOGRAPHIC FINDING IN THE CHEST. Status: Image reviewed by me - Chest x-ray interpreted by me: Single view portable chest x-ray shows mild cardiomegaly with no acute cardiopulmonary findings. Assessment & Plan - Diagnosis (1) Chest pain Qualifiers: Chest pain type: unspecified Qualified Code(s): R07.9 - Chest pain, unspecified Is this a current diagnosis for this admission?: Yes Plan: Patient is admitted to a telemetry monitored bed for routine serial cardiac enzyme evaluation as well as serial EKG evaluation. Further evaluation and consultation will be determined by the results of her preliminary evaluation. Her chest pain will be managed with sublingual nitroglycerin 0.4 mg every 5 minutes as needed chest pain up to 3 doses. For chest pain not relieved by nitroglycerin patient will receive intravenous morphine on a sliding scale 2-4 mg determined by the severity of the pain. (2) Chronic systolic congestive heart failure, NYHA class 2 Is this a current diagnosis for this admission?: Yes Plan: The patient's current medications will be adjusted with discontinuation of her Procardia XL. Her atenolol total of 75 mg daily will be replaced by metoprolol XL 200 mg p.o. daily and her valsartan hydrochlorothiazide combination will be replaced by losartan 100 mg p.o. daily and torsemide 10 mg p.o. daily. Her spironolactone will be continued at 12.5 mg p.o. daily. An initial dose of torsemide 20 mg x1 will be given upon admission. Therapeutic response will be monitored closely throughout her hospital stay. (3) Chronic atrial fibrillation Is this a current diagnosis for this admission?: Yes Plan: Patient's medications will be adjusted in terms of her beta-josé manuel (rate control) as she will require metoprolol XL for treatment of her congestive heart failure. Additionally her anticoagulants will be converted to Eliquis on admission and this will be continued on discharge if her insurance will provide reimbursement/coverage. (4) CKD (chronic kidney disease) stage 4, GFR 15-29 ml/min Is this a current diagnosis for this admission?: Yes Plan: The patient's medications will be adjusted in dosage with her chronic renal failure taken into consideration. Her creatinine was noted to be slightly elevated compared to her previous levels determined on her last admission. Additionally her potassium was slightly elevated at 5.1. This prompted the administration of an initial dose of torsemide 20 mg p.o. x1 on admission. (5) Hypertension Qualifiers: Hypertension type: essential hypertension Qualified Code(s): I10 - Essential (primary) hypertension Is this a current diagnosis for this admission?: Yes Plan: The patient's current medications will be adjusted with discontinuation of her Procardia XL. Her atenolol total of 75 mg daily will be replaced by metoprolol XL 200 mg p.o. daily and her valsartan hydrochlorothiazide combination will be replaced by losartan 100 mg p.o. daily and torsemide 10 mg p.o. daily. Her spironolactone will be continued at 12.5 mg p.o. daily. Her blood pressure will be monitored closely throughout her hospital stay. (6) Diabetes type 2, controlled Qualifiers: Diabetes mellitus custodial insulin use: without custodial use Diabetes mellitus complication status: with kidney complications Diabetes mellitus complication detail: with chronic kidney disease Chronic kidney disease stage : stage 4 (severe) Qualified Code(s): E11.22 - Type 2 diabetes mellitus with diabetic chronic kidney disease; N18.4 - Chronic kidney disease, stage 4 (severe ); N18.4 - Chronic kidney disease, stage 4 (severe); N18.4 - Chronic kidney disease, stage 4 (severe); N18.4 - Chronic kidney disease, stage 4 (severe) Is this a current diagnosis for this admission?: Yes Plan: Given the patient's degree of renal failure her Januvia will be discontinued and I will increase her glipizide XL to 10 mg p.o. daily. Her last hemoglobin A1c was 5.7. A repeat hemoglobin A1c should be done in approximately 90 days. She will be continued on a diabetic and renal diet and Accu-Cheks will be before meals and at bedtime to evaluate glycemic control and a sliding scale with Humalog will be employed to treat significant hyperglycemia. - Time Time Spent with patient: 30-50 minutes Time Spent: Greater than 70 Minutes Medications reviewed and adjusted accordingly: Yes Anticipated discharge: Home, Home with Homehealth Within: within 36 hours
[2018-04-30] MEDS: APIXABAN 2.5 MG TABLET PO SCH (17:40)
[2018-04-30] MEDS: LANSOPRAZOLE 30 MG TAB.RAP.DR PO SCH (17:40)
[2018-04-30] MEDS: DOCUSATE SODIUM 100 MG CAPSULE PO SCH (17:40)
[2018-04-30 18:25] LABS: TROPONIN I < 0.012 ng/mL
--- NOTE | 2018-04-30 22:19 | EKG REPORT ---
SEVERITY:- ABNORMAL ECG - ATRIAL FIBRILLATION RIGHT BUNDLE BRANCH BLOCK : Confirmed by: Elisha Sheridan MD 30-Apr-2018 22:17:59
[2018-05-01 00:47] LABS: CREATINE KINASE MB 0.51 ng/mL (<4.55); TROPONIN I < 0.012 ng/mL
[2018-05-01] MEDS: LANSOPRAZOLE 30 MG TAB.RAP.DR PO SCH (06:05)
[2018-05-01 06:36] LABS: HEMOGLOBIN 12.2 g/dL (12.0-15.5); MEAN CORPUSCULAR HEMOGLOBIN 30.9 pg (27.0-33.4); MEAN CORPUSCULAR HGB CONC 33.9 g/dL (32.0-36.0); MEAN CORPUSCULAR VOLUME 91 fl (80-97); PLATELET COUNT 186 10^3/uL (150-450); RED BLOOD COUNT 3.95 10^6/uL (3.72-5.28); RED CELL DISTRIBUTION WIDTH 13.9 % (11.5-14.0); WHITE BLOOD COUNT 5.4 10^3/uL (4.0-10.5)
[2018-05-01 06:52] LABS: ALANINE AMINOTRANSFERASE 19 U/L (9-52); ALBUMIN 3.8 g/dL (3.5-5.0); ALKALINE PHOSPHATASE 51 U/L (38-126); ANION GAP 10 (5-19); ASPARTATE AMINO TRANSFERASE 24 U/L (14-36); BILIRUBIN,DIRECT 0.2 mg/dL (0.0-0.4); BILIRUBIN,TOTAL 0.6 mg/dL (0.2-1.3); BLOOD UREA NITROGEN 43 mg/dL (7-20); CARBON DIOXIDE 28 mmol/L (22-30); CHLORIDE 104 mmol/L (98-107); CHOLESTEROL 122.59 mg/dL (0-200); CREATINE KINASE 35 U/L (30-135); GLUCOSE 73 mg/dL (75-110); POTASSIUM 4.3 mmol/L (3.6-5.0); SODIUM 141.9 mmol/L (137-145); TOTAL PROTEIN 6.5 g/dL (6.3-8.2); TRIGLYCERIDES 158 mg/dL (<150)
--- NOTE | 2018-05-01 07:01 | EKG REPORT ---
SEVERITY:- ABNORMAL ECG - ATRIAL FIBRILLATION RBBB AND LPFB PROBABLE ANTEROSEPTAL INFARCT, AGE INDETERM : Confirmed by: Dudley Merida MD 01-May-2018 07:01:06
[2018-05-01 07:06] LABS: FREE T3 3.81 pg/mL (2.77-5.27); FREE T4 (FREE THYROXINE) 1.83 ng/dL (0.78-2.19)
[2018-05-01 07:07] LABS: DIRECT LDL 69 mg/dL (<100)
[2018-05-01 07:08] LABS: CREATINE KINASE MB 0.47 ng/mL (<4.55); NT PRO BNP 9710 pg/mL (<450)
[2018-05-01 07:13] LABS: ABSOLUTE LYMPHOCYTES# (MANUAL) 1.5 10^3/uL (0.5-4.7); ABSOLUTE MONOCYTES # (MANUAL) 0.5 10^3/uL (0.1-1.4); ABSOLUTE NEUTROPHILS# (MANUAL) 3.1 10^3/uL (1.7-8.2); BASOPHILS % (MANUAL) 2 % (0-2); EOSINOPHILS % (MANUAL) 3 % (0-6); LYMPHOCYTES % (MANUAL) 28 % (13-45); MONOCYTES % (MANUAL) 9 % (3-13); SEGMENTED NEUTROPHILS % (MAN) 58 % (42-78); TOTAL CELLS COUNTED 100
[2018-05-01 07:14] LABS: VLDL CHOLESTEROL 31.6 mg/dL (10-31)
[2018-05-01 07:15] LABS: OVALOCYTES SLIGHT; POIKILOCYTOSIS SLIGHT; TROPONIN I < 0.012 ng/mL
[2018-05-01 07:16] LABS: PLATELET COMMENT ADEQUATE; SCHISTOCYTES SLIGHT; TEAR DROP CELLS SLIGHT
[2018-05-01 07:20] LABS: THYROID STIMULATING HORMONE 2.64 uIU/mL (0.47-4.68)
[2018-05-01] MEDS ORDERED: ONDANSETRON HCL INJ/PF 4 MG/2 ML SDV IV PRN (07:30)
[2018-05-01] MEDS ORDERED: ONDANSETRON 4 MG TAB.RAPDIS PO PRN (07:30)
[2018-05-01 08:44] VITALS: BP 122/42
[2018-05-01] MEDS: DOCUSATE SODIUM 100 MG CAPSULE PO SCH (09:07)
[2018-05-01] MEDS: APIXABAN 2.5 MG TABLET PO SCH (09:09)
[2018-05-01] MEDS ORDERED: METOPROLOL SUCCINATE 50 MG TAB.SR.24H PO SCH (10:00)
[2018-05-01] MEDS ORDERED: LOSARTAN POTASSIUM 50 MG TABLET PO SCH (10:00)
[2018-05-01] MEDS ORDERED: SPIRONOLACTONE 25 MG TABLET PO SCH ×2 (10:00)
[2018-05-01] MEDS ORDERED: GLIPIZIDE XL 5 MG TAB.ER.24 PO SCH ×2 (10:00)
[2018-05-01] MEDS ORDERED: TORSEMIDE 20 MG TABLET PO SCH (10:00)
--- NOTE | 2018-05-01 12:41 | PDOC DISCHARGE SUMMARY ---
General - Admit/Disc Date/PCP Admission Date/Primary Care Provider: 04/30/18 14:09 MILVIA RED MD Discharge Date: 05/01/18 - Discharge Diagnosis (1) Chest pain Is this a current diagnosis for this admission?: Yes Summary: Patient is admitted to a telemetry monitored bed for routine serial cardiac enzyme evaluation as well as serial EKG evaluation. Further evaluation and consultation will be determined by the results of her preliminary evaluation. Her chest pain will be managed with sublingual nitroglycerin 0.4 mg every 5 minutes as needed chest pain up to 3 doses. For chest pain not relieved by nitroglycerin patient will receive intravenous morphine on a sliding scale 2-4 mg determined by the severity of the pain. Patient had resolution of her chest pain and has not had a recurrence. Her serial cardiac enzymes were negative for evidence of cardiac ischemia or injury and her EKG showed no changes. Her EKG did continue to show a heart rate in the 60s-70s with atrial fibrillation and a right bundle branch block. She was observed on telemetry and her heart rate remained well controlled throughout the night with chronic atrial fibrillation noted. (2) Chronic systolic congestive heart failure, NYHA class 2 Is this a current diagnosis for this admission?: Yes Summary: The patient's current medications will be adjusted with discontinuation of her Procardia XL. Her atenolol total of 75 mg daily will be replaced by metoprolol XL 200 mg p.o. daily and her valsartan hydrochlorothiazide combination will be replaced by losartan 100 mg p.o. daily and torsemide 10 mg p.o. daily. Her spironolactone will be continued at 12.5 mg p.o. daily. An initial dose of torsemide 20 mg x1 will be given upon admission. Therapeutic response will be monitored closely throughout her hospital stay. Patient has had an excellent therapeutic response to the medication changes made above. These medications will be continued at the time of discharge and should be reevaluated with Dr. Sheridan her boom stick man in 1-2 weeks to assess ongoing efficacy. (3) Chronic atrial fibrillation Is this a current diagnosis for this admission?: Yes Summary: Patient's medications will be adjusted in terms of her beta-domenica (rate control) as she will require metoprolol XL for treatment of her congestive heart failure. Additionally her anticoagulants will be converted to Eliquis on admission and this will be continued on discharge if her insurance will provide reimbursement/coverage. The patient continues to have excellent rate control throughout her hospital course and up to the time of discharge with the change of medications to metoprolol XL 200 mg once daily being used to treat her hypertension, congestive heart failure and atrial fibrillation (rate controlled). The patient will be continued on Eliquis at the time of discharge, although if her insurance has a different preferred therapeutic agent in the same class I would be happy to change the prescription to allow for this. (4) CKD (chronic kidney disease) stage 4, GFR 15-29 ml/min Is this a current diagnosis for this admission?: Yes Summary: The patient's medications will be adjusted in dosage with her chronic renal failure taken into consideration. Her creatinine was noted to be slightly elevated compared to her previous levels determined on her last admission. Additionally her potassium was slightly elevated at 5.1. This prompted the administration of an initial dose of torsemide 20 mg p.o. x1 on admission. At the time of discharge patient's lower extremity edema had been resolved and her potassium was back to normal level. (5) Hypertension Is this a current diagnosis for this admission?: Yes Summary: The patient's current medications will be adjusted with discontinuation of her Procardia XL. Her atenolol total of 75 mg daily will be replaced by metoprolol XL 200 mg p.o. daily and her valsartan hydrochlorothiazide combination will be replaced by losartan 100 mg p.o. daily and torsemide 10 mg p.o. daily. Her spironolactone will be continued at 12.5 mg p.o. daily. Her blood pressure will be monitored closely throughout her hospital stay. Her vital signs have been very stable on her new regimen and her lower extremity edema has resolved. (6) Diabetes type 2, controlled Is this a current diagnosis for this admission?: Yes Summary: Given the patient's degree of renal failure her Januvia will be discontinued and I will increase her glipizide XL to 10 mg p.o. daily. Her last hemoglobin A1c was 5.7. A repeat hemoglobin A1c should be done in approximately 90 days. She will be continued on a diabetic and renal diet and Accu-Cheks will be before meals and at bedtime to evaluate glycemic control and a sliding scale with Humalog will be employed to treat significant hyperglycemia. Patient's glipizide was actually reduced back to 5 mg p.o. daily after seeing her Accu-Chek results. I highly suspect that this patient does not actually have diabetes mellitus type 2 requiring medication for treatment. Strong consideration should be given to discontinuation of her glipizide and rechecking her hemoglobin A1c in 90 days. I will leave this decision to her primary care provider who may well have more information than I and be able to make a more informed and in light and medical decision. - Additional Information Resuscitation Status: Full Code Discharge Diet: Cardiac, Diabetic Discharge Activity: Activity As Tolerated, Walk Frequently Prescriptions: Apixaban [Eliquis 2.5 mg Tablet] 2.5 mg PO BID 30 Days #60 tablet Losartan Potassium 100 mg PO DAILY 30 Days #30 tablet Metoprolol Succinate 200 mg PO DAILY 30 Days #30 tab.er.24h Home Medications: Pravastatin Sodium [Pravachol] 20 mg PO QPM 12/01/16 Glipizide [Glipizide ER] 5 mg PO DAILY 04/24/18 Apixaban [Eliquis 2.5 mg Tablet] 2.5 mg PO BID 30 Days #60 tablet 05/01/18 Losartan Potassium 100 mg PO DAILY 30 Days #30 tablet 05/01/18 Metoprolol Succinate 200 mg PO DAILY 30 Days #30 tab.er.24h 05/01/18 Spironolactone 12.5 mg PO DAILY #0 05/01/18 History of Present Illness Patient complains of: Chest pain History of Present Illness: TWAN ANGELES is a 82 year old female who presented to the emergency room with a 2-hour history of chest pain. She admitted that she was doing normal activities at her home while walking from one room to another she suddenly developed a moderately severe, pressing heaviness on her anterior mid chest that did not radiate and persisted until after she was seen in the emergency room. Her chest pain was accompanied by dyspnea as well as a feeling of mildly painful heaviness/fatigue in her bilateral lower extremities. She denies prior similar episodes and has not identified any aggravating or ameliorating factors for her chest pain. She admits a past medical history positive for congestive heart failure and a hospitalization for that illness 1 week ago. 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 In the emergency room she was found to have an EKG with no acute changes but demonstrating atrial fibrillation with a well- controlled ventricular rate. Her cardiac enzymes were negative x1 and her chest x-ray showed no acute cardiopulmonary findings. She will be admitted to the hospitalist service for further evaluation on inpatient observation status. Hospital Course Hospital Course: 05/01/18: The patient has had a very uneventful course since her admission. Her chest pain resolved and she had no recurrences. Her bilateral lower extremity edema has resolved. Her cardiac enzymes have been unchanged throughout her hospital course and show no evidence of acute cardiac ischemia or injury. Her EKG has remained essentially unchanged on serial evaluation, showing no changes consistent with acute cardiac ischemia or injury. Because of her excellent response to changes in therapy and her negative evaluation for acute cardiac ischemia or injury she will be discharged to home today in improved and stable condition. She will follow-up with her primary care provider in 1-2 weeks and with her boom stick man also in 1-2 weeks or at her scheduled appointment. Physical Exam Vital Signs: Temp Pulse Resp BP Pulse Ox 97.3 F 66 18 119/38 L 100 05/01/18 04:20 05/01/18 04:20 05/01/18 04:20 05/01/18 04:20 05/01/18 04:20 Intake & Output 04/30/18 04/30/18 05/01/18 00:59 23:59 23:59 Intake Total 760 Balance 760 Weight 78 kg General appearance: PRESENT: no acute distress, cooperative, well-developed, well-nourished Head exam: PRESENT: atraumatic, normocephalic Eye exam: PRESENT: conjunctiva pink, EOMI. ABSENT: periorbital swelling, scleral icterus Ear exam: PRESENT: normal external ear exam Mouth exam: PRESENT: neck supple, tongue midline Neck exam: ABSENT: JVD, thyromegaly, tracheal deviation Respiratory exam: PRESENT: clear to auscultation mariya, symmetrical, unlabored Cardiovascular exam: PRESENT: irregular rhythm. ABSENT: bradycardia, clicks, diastolic murmur, gallop, rubs, systolic murmur, tachycardia Vascular exam: PRESENT: normal capillary refill. ABSENT: pallor Extremities exam: PRESENT: pedal edema - Resolution of bilateral pretibial edema is noted. ABSENT: clubbing, tenderness Musculoskeletal exam: PRESENT: ambulatory, normal inspection. ABSENT: deformity , dislocation Neurological exam: PRESENT: alert, oriented to person, oriented to place, oriented to time, oriented to situation, CN II-XII grossly intact. ABSENT: motor sensory deficit Psychiatric exam: PRESENT: appropriate affect, normal mood Skin exam: PRESENT: dry, warm. ABSENT: jaundice, rash, urticaria Results Laboratory Results: 05/01/18 06:15 05/01/18 06:15 05/01/18 05/01/18 05/01/18 06:15 06:15 06:15 WBC 5.4 RBC 3.95 Hgb 12.2 Hct 36.0 MCV 91 MCH 30.9 MCHC 33.9 RDW 13.9 Plt Count 186 Seg Neutrophils % Not Reportable Lymphocytes % Not Reportable Monocytes % Not Reportable Eosinophils % Not Reportable Basophils % Not Reportable Absolute Neutrophils Not Reportable Absolute Lymphocytes Not Reportable Absolute Monocytes Not Reportable Absolute Eosinophils Not Reportable Absolute Basophils Not Reportable Sodium 141.9 Potassium 4.3 Chloride 104 Carbon Dioxide 28 Anion Gap 10 BUN 43 H Creatinine 2.35 H Est GFR ( Amer) 24 L Est GFR (Non-Af Amer) 20 L Glucose 73 L Calcium 9.0 Magnesium 2.3 Total Bilirubin 0.6 AST 24 ALT 19 Alkaline Phosphatase 51 Total Protein 6.5 Albumin 3.8 Triglycerides 158 H Cholesterol 122.59 LDL Cholesterol Direct 69 VLDL Cholesterol 31.6 H HDL Cholesterol 40 TSH 2.64 Free T4 1.83 Free T3 pg/mL 3.81 04/30/18 04/30/18 04/30/18 17:46 17:46 23:47 Creatine Kinase 48 36 CK-MB (CK-2) 0.60 Troponin I < 0.012 NT-Pro-B Natriuret Pep 04/30/18 05/01/18 05/01/18 23:47 06:15 06:15 Creatine Kinase Cancelled CK-MB (CK-2) 0.51 0.47 Troponin I < 0.012 < 0.012 NT-Pro-B Natriuret Pep 9710 H 05/01/18 05/01/18 06:15 06:15 Creatine Kinase 35 CK-MB (CK-2) Troponin I NT-Pro-B Natriuret Pep Cancelled EKG Comments: EKG interpreted by me: Atrial fibrillation with well-controlled ventricular rate in the 60s, chronic right bundle branch block as compared to prior tracings , no acute changes noted, no changes consistent with acute cardiac ischemia or injury are present. Impressions: Chest X-Ray 04/30/18 11:29 IMPRESSION: HEART ENLARGED WITHOUT FAILURE. NO OTHER SIGNIFICANT RADIOGRAPHIC FINDING IN THE CHEST. Qualifiers - * PATIENT BEING DISCHARGED WITH ANY OF THE FOLLOWING DIAGNOSIS: Heart Failure HF Pt being discharged on ACEI for LVEF less than 40%?: No Reason(s) for not prescribing ACEI:: Medical Contraindication - Chronic renal failure stage IV HF Pt being discharged on [facility]BS for LVEF less than 40%?: Yes HF Pt with Afib discharged with Warfarin?: No Reason(s) for not prescribing Warfarin:: Drug intolerance - Patient has had a great deal of difficulty complying with the necessary diet and lifestyle changes required to take Coumadin. Her family has noted that it is severely limited her willingness to participate in activities such as going out to eat at restaurants or going to friends or relatives homes for meals. With this in mind the patient has been discharged on Eliquis 2.5 mg p.o. twice daily. HF Pt discharged on evidence-based Beta Domenica:: Yes Plan Discharge Plan: Discharged home in improved and stable condition. Follow-up with primary care provider in 1-2 weeks follow-up with Dr. Sheridan in 1-2 weeks. Time Spent: Greater than 30 Minutes
[2018-05-01] MEDS ORDERED: LANSOPRAZOLE 30 MG TAB.RAP.DR PO SCH (17:00)
[2018-05-01] MEDS ORDERED: SIMVASTATIN 10 MG TABLET PO SCH (22:00)
== END 2018-05-01 12:29 | disposition home or self-care (01) ==
LOC: ER 11:10 → EH 14:09 → 5 16:18
PROVIDERS: ADMIT Emergency Medicine; ATTEND Emergency Medicine
DX: R07.9 Chest pain, unspecified (principal); I13.0 Hypertensive heart and chronic kidney disease with heart failure and stage 1 through stage 4 chronic kidney disease, or unspecified chronic kidney disease; I50.22 Chronic systolic (congestive) heart failure; N18.4 Chronic kidney disease, stage 4 (severe); E11.22 Type 2 diabetes mellitus with diabetic chronic kidney disease; I48.2 Chronic atrial fibrillation; I45.10 Unspecified right bundle-branch block; R05 Cough; Z79.84 Long term (current) use of oral hypoglycemic drugs; Z79.899 Other long term (current) drug therapy; Z79.01 Long term (current) use of anticoagulants; Z87.01 Personal history of pneumonia (recurrent); Z85.3 Personal history of malignant neoplasm of breast; Z87.891 Personal history of nicotine dependence; Z82.49 Family history of ischemic heart disease and other diseases of the circulatory system
CPT/HCPCS: 93005 ×2; 99285; 36415 ×2; 84439; 82553 ×2; 82962 ×2; 82550 ×2; 83735; 84443; 85025 ×2; 85610; 80053 ×2; 84484 ×2; 84481; 80061; 83880; 71045; 93010 ×2; G0378 ×3; A9270 ×12; J3490 ×2

== ENCOUNTER → 2018-05-09 | Outpatient (CLI) | payer MEDICARE ==
[2018-05-09 09:27] LABS: INTERNATIONAL RATION (INR) 1.67; PROTHROMBIN TIME 20.5 SEC (11.4-15.4)
[2018-05-09 10:32] LABS: ALANINE AMINOTRANSFERASE 22 U/L (9-52); ALKALINE PHOSPHATASE 61 U/L (38-126); ANION GAP 12 (5-19); ASPARTATE AMINO TRANSFERASE 34 U/L (14-36); BILIRUBIN,DIRECT 0.4 mg/dL (0.0-0.4); BILIRUBIN,TOTAL 0.7 mg/dL (0.2-1.3); BLOOD UREA NITROGEN 20 mg/dL (7-20); CALCIUM 8.2 mg/dL (8.4-10.2); CARBON DIOXIDE 23 mmol/L (22-30); CHLORIDE 104 mmol/L (98-107); CHOLESTEROL 143.46 mg/dL (0-200); GLUCOSE 142 mg/dL (75-110); POTASSIUM 5.4 mmol/L (3.6-5.0); SODIUM 138.7 mmol/L (137-145); TOTAL PROTEIN 6.6 g/dL (6.3-8.2); TRIGLYCERIDES 219 mg/dL (<150)
[2018-05-09 10:43] LABS: DIRECT LDL 91 mg/dL (<100)
[2018-05-09 10:45] LABS: VLDL CHOLESTEROL 43.8 mg/dL (10-31)
== END ==
LOC: OD 08:02
PROVIDERS: ATTEND Specialist
DX: I50.32 Chronic diastolic (congestive) heart failure (principal); I48.2 Chronic atrial fibrillation; I35.0 Nonrheumatic aortic (valve) stenosis; I34.0 Nonrheumatic mitral (valve) insufficiency; E11.9 Type 2 diabetes mellitus without complications; E78.5 Hyperlipidemia, unspecified; I10 Essential (primary) hypertension; I27.89 Other specified pulmonary heart diseases; I36.1 Nonrheumatic tricuspid (valve) insufficiency; N18.9 Chronic kidney disease, unspecified; R94.31 Abnormal electrocardiogram [ECG] [EKG]; Z79.01 Long term (current) use of anticoagulants; Z79.899 Other long term (current) drug therapy
CPT/HCPCS: 36415; 80053; 80061; 83036; 85610

== ENCOUNTER → 2018-06-02 | Outpatient (CLI) | payer MEDICARE ==
[2018-06-02 10:43] LABS: INTERNATIONAL RATION (INR) 1.45; PROTHROMBIN TIME 18.4 SEC (11.4-15.4)
== END ==
LOC: OD 09:20
PROVIDERS: ATTEND Specialist
DX: I48.2 Chronic atrial fibrillation (principal); Z79.01 Long term (current) use of anticoagulants
CPT/HCPCS: 36415; 85610

== ENCOUNTER → 2018-07-03 | Outpatient (CLI) | payer MEDICARE ==
[2018-07-03 12:04] LABS: INTERNATIONAL RATION (INR) 1.28; PROTHROMBIN TIME 16.6 SEC (11.4-15.4)
== END ==
LOC: OD 11:24
PROVIDERS: ATTEND Specialist
DX: I48.2 Chronic atrial fibrillation (principal); Z79.01 Long term (current) use of anticoagulants
CPT/HCPCS: 36415; 85610

== ENCOUNTER → 2018-07-06 | Outpatient (CLI) | payer MEDICARE ==
[2018-07-06 13:20] LABS: PROTHROMBIN TIME 18.8 SEC (11.4-15.4)
== END ==
LOC: OD 12:47
PROVIDERS: ATTEND Specialist
DX: I13.0 Hypertensive heart and chronic kidney disease with heart failure and stage 1 through stage 4 chronic kidney disease, or unspecified chronic kidney disease (principal); N18.4 Chronic kidney disease, stage 4 (severe); I50.32 Chronic diastolic (congestive) heart failure; E08.22 Diabetes mellitus due to underlying condition with diabetic chronic kidney disease; I34.0 Nonrheumatic mitral (valve) insufficiency; I35.0 Nonrheumatic aortic (valve) stenosis; E78.49 Other hyperlipidemia; I36.1 Nonrheumatic tricuspid (valve) insufficiency; I27.89 Other specified pulmonary heart diseases; I48.2 Chronic atrial fibrillation; Z79.01 Long term (current) use of anticoagulants; R06.02 Shortness of breath; R43.1 Parosmia; I42.9 Cardiomyopathy, unspecified; Z79.899 Other long term (current) drug therapy
CPT/HCPCS: 36415; 85610

== ENCOUNTER → 2018-07-14 | Outpatient (CLI) | payer MEDICARE ==
[2018-07-14 10:54] LABS: ANION GAP 8 (5-19); BLOOD UREA NITROGEN 22 mg/dL (7-20); CALCIUM 9.5 mg/dL (8.4-10.2); CARBON DIOXIDE 23 mmol/L (22-30); CHLORIDE 112 mmol/L (98-107); GLUCOSE 94 mg/dL (75-110); POTASSIUM 5.2 mmol/L (3.6-5.0); SODIUM 142.6 mmol/L (137-145)
== END ==
LOC: OD 09:32
PROVIDERS: ATTEND Internal Medicine Nephrology
DX: I12.9 Hypertensive chronic kidney disease with stage 1 through stage 4 chronic kidney disease, or unspecified chronic kidney disease (principal); N18.4 Chronic kidney disease, stage 4 (severe); E11.22 Type 2 diabetes mellitus with diabetic chronic kidney disease
CPT/HCPCS: 36415; 80048; 83970

== ENCOUNTER 2018-07-18 09:55 | Emergency (ER) | payer MEDICARE ==
[2018-07-18 10:30] VITALS: BP 141/61
--- NOTE | 2018-07-18 11:12 | ER Document Report ---
HPI - HPI Patient complains to provider of: leg leaking Time Seen by Provider: 07/18/18 10:54 Onset: Yesterday Onset/Duration: Persistent Quality of pain: No pain Pain Level: Denies Context: Patient presents emergency department with complaints of her right leg leaking since yesterday. She reports it made her sock wet. She denies shortness of breath chest pain. Denies fever vomiting diarrhea. She reports she called her doctor's office and they told her to go to the emergency department. She also admits that she has not been taking her diuretic, Lasix, for a while. She reports they called in her prescription which she picked up before she came to the emergency department. Associated Symptoms: None. denies: Chest pain, Nonproductive cough, Productive cough, Fever, Nausea, Vomiting, Shortness of breath Exacerbated by: Denies Relieved by: Denies Similar symptoms previously: No Recently seen / treated by doctor: No Past Medical History - General Information source: Patient - Social History Smoking Status: Unknown if Ever Smoked Cigarette use (# per day): No Frequency of alcohol use: None Drug Abuse: None Family History: Reviewed & Not Pertinent Patient has suicidal ideation: No Patient has homicidal ideation: No - Past Medical History Cardiac Medical History: Reports: Hx Atrial Fibrillation, Hx Congestive Heart Failure, Hx Hypertension - controlled with meds Denies: Hx Coronary Artery Disease, Hx Heart Attack Pulmonary Medical History: Reports: Hx Pneumonia Denies: Hx Asthma, Hx Bronchitis, Hx COPD Neurological Medical History: Denies: Hx Cerebrovascular Accident, Hx Seizures Endocrine Medical History: Reports: Hx Diabetes Mellitus Type 2. Denies: Hx Diabetes Mellitus Type 1, Hx Hyperthyroidism, Hx Hypothyroidism Renal/ Medical History: Reports: Hx End Stage Renal Disease - Stage IV renal disease. Denies: Hx Peritoneal Dialysis Malignancy Medical History: Reports: Hx Breast Cancer - S/P left mastectomy + 2 lymphnodes GI Medical History: Reports: Hx Hiatal Hernia. 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, Denies Hx Fibromyalgia Skin Medical History: Denies Hx Eczema, Denies Hx Psoriasis Psychiatric Medical History: Denies: Hx Depression Infectious Medical History: Denies: Hx Hepatitis Past Surgical History: Reports: Hx Mastectomy - LEFT BREAST, Hx Orthopedic Surgery - RIGHT KNEE, Other - "UTERUS WAS LIFTED" UTERINE SUSPENSION PROCEDURE - Immunizations Hx Diphtheria, Pertussis, Tetanus Vaccination: No Hx Pneumococcal Vaccination: 02/26/16 Vertical Provider Document - CONSTITUTIONAL Agree With Documented VS: Yes Exam Limitations: No Limitations General Appearance: WD/WN, No Apparent Distress - nontoxic looking, happy smiling, very talkative - INFECTION CONTROL TRAVEL OUTSIDE OF THE [place] IN LAST 30 DAYS: No - HEENT HEENT: Atraumatic, Normocephalic - NECK Neck: Normal Inspection, Supple. negative: Lymphadenopathy-Left, Lymphadenopathy-Right - RESPIRATORY Respiratory: Breath Sounds Normal, No Respiratory Distress, Chest Non-Tender. negative: Rales, Rhonchi, Wheezing - CARDIOVASCULAR Cardiovascular: Regular Rate - GI/ABDOMEN Gastrointestinal: Abdomen Soft, Abdomen Non-Tender - MUSCULOSKELETAL/EXTREMETIES Musculoskeletal/Extremeties: MAEW, FROM, Non-Tender - NEURO Level of Consciousness: Awake, Alert, Appropriate Motor/Sensory: No Motor Deficit - DERM Integumentary: Warm, Dry, No Rash. negative: Rash, Abscess, Laceration Adult Front & Back Diagram: 1 - small abrasion, very minimal clear substance draining. Course - Re-evaluation Re-evalutation: 07/18/18 11:12 Patient does have a history of CHF. She reports her right leg is always swollen larger than her left leg. Some pitting edema noted. Patient has an abrasion on her right barnett where clear fluid leaking is slowly draining from. Very minimal. No erythema no swelling no warmth. Patient denies calf pain. We discussed plan of care. I contacted Dr. Badillo her tipple oiler who will see patient on July 20. Patient is okay with this plan and feels safe. No other complaints. Dictation of this chart was performed using voice recognition software; therefore, there may be some unintended grammatical errors. - Vital Signs Vital signs: Temp Pulse Resp BP Pulse Ox 97.8 F 70 18 141/61 H 97 07/18/18 10:28 07/18/18 10:28 07/18/18 10:28 07/18/18 10:28 07/18/18 10:28 Discharge - Discharge Clinical Impression: right barnett leaking clear fluid, 1+ pitting edema Disposition: HOME, SELF-CARE Instructions: Dependent Edema ([facility]) Additional Instructions: *You have been evaluated for right barnett fluid drainage, pitting edema *Take your lasix as prescribed *Follow up with Dr Godwin July 20 at 1015 *Return to ED for worsening condition, changes, needs, chest pain, shortness of breath, concerns Referrals: ARELY DANIELLE MD [Primary Care Provider] - Follow up as needed TRINA MAYA MD [ACTIVE STAFF] - 07/20/18 10:15 am
== END 2018-07-18 11:15 | disposition home or self-care (01) ==
LOC: ER 09:55
DX: S80.812A Abrasion, left lower leg, initial encounter (principal); R60.9 Edema, unspecified; X58.XXXA Exposure to other specified factors, initial encounter; I48.91 Unspecified atrial fibrillation; E11.22 Type 2 diabetes mellitus with diabetic chronic kidney disease; I13.2 Hypertensive heart and chronic kidney disease with heart failure and with stage 5 chronic kidney disease, or end stage renal disease; I50.9 Heart failure, unspecified; N18.6 End stage renal disease
CPT/HCPCS: 99284

== ENCOUNTER → 2018-08-03 | Outpatient (CLI) | payer MEDICARE ==
[2018-08-03 10:21] LABS: INTERNATIONAL RATION (INR) 2.16; PROTHROMBIN TIME 25.1 SEC (11.4-15.4)
== END ==
LOC: OD 09:28
PROVIDERS: ATTEND Specialist
DX: I48.2 Chronic atrial fibrillation (principal); Z79.01 Long term (current) use of anticoagulants
CPT/HCPCS: 36415; 85610

== ENCOUNTER → 2018-09-01 | Outpatient (CLI) | payer MEDICARE ==
[2018-09-01 08:45] LABS: INTERNATIONAL RATION (INR) 1.14; PROTHROMBIN TIME 15.2 SEC (11.4-15.4)
== END ==
LOC: OD 08:15
PROVIDERS: ATTEND Specialist
DX: I48.2 Chronic atrial fibrillation (principal); Z79.01 Long term (current) use of anticoagulants
CPT/HCPCS: 36415; 85610

== ENCOUNTER → 2018-11-10 | Outpatient (CLI) | payer MEDICARE ==
[2018-11-10 13:13] LABS: ABSOLUTE BASOPHILS # (AUTO) 0.1 10^3/uL (0.0-0.2); ABSOLUTE EOSINOPHILS # (AUTO) 0.2 10^3/uL (0.0-0.6); ABSOLUTE LYMPHOCYTES (AUTO) 1.4 10^3/uL (0.5-4.7); ABSOLUTE MONOCYTES (AUTO) 0.5 10^3/uL (0.1-1.4); ABSOLUTE NEUT (AUTO) 3.1 10^3/uL (1.7-8.2); BASOPHILS % (AUTO) 1.2 % (0-2); EOSINOPHILS % (AUTO) 3.8 % (0-6); HEMATOCRIT 42.8 % (36.0-47.0); LYMPHOCYTES % (AUTO) 26.8 % (13-45); MEAN CORPUSCULAR HEMOGLOBIN 27.3 pg (27.0-33.4); MEAN CORPUSCULAR HGB CONC 32.8 g/dL (32.0-36.0); MEAN CORPUSCULAR VOLUME 83 fl (80-97); PLATELET COUNT 181 10^3/uL (150-450); RED BLOOD COUNT 5.15 10^6/uL (3.72-5.28); RED CELL DISTRIBUTION WIDTH 16.3 % (11.5-14.0); SEGMENTED NEUTROPHILS % (AUTO) 59.2 % (42-78); TOTAL CELLS COUNTED % (AUTO) 100 %; WHITE BLOOD COUNT 5.3 10^3/uL (4.0-10.5)
[2018-11-10 13:19] LABS: ABSOLUTE BASOPHILS # (AUTO) 0.1 10^3/uL (0.0-0.2); ABSOLUTE EOSINOPHILS # (AUTO) 0.2 10^3/uL (0.0-0.6); ABSOLUTE LYMPHOCYTES (AUTO) 1.4 10^3/uL (0.5-4.7); ABSOLUTE MONOCYTES (AUTO) 0.5 10^3/uL (0.1-1.4); ABSOLUTE NEUT (AUTO) 3.1 10^3/uL (1.7-8.2); BASOPHILS % (AUTO) 1.2 % (0-2); EOSINOPHILS % (AUTO) 3.8 % (0-6); HEMATOCRIT 42.8 % (36.0-47.0); LYMPHOCYTES % (AUTO) 26.8 % (13-45); MEAN CORPUSCULAR HEMOGLOBIN 27.3 pg (27.0-33.4); MEAN CORPUSCULAR HGB CONC 32.8 g/dL (32.0-36.0); MEAN CORPUSCULAR VOLUME 83 fl (80-97); PLATELET COUNT 181 10^3/uL (150-450); RED BLOOD COUNT 5.15 10^6/uL (3.72-5.28); RED CELL DISTRIBUTION WIDTH 16.3 % (11.5-14.0); SEGMENTED NEUTROPHILS % (AUTO) 59.2 % (42-78); TOTAL CELLS COUNTED % (AUTO) 100 %; WHITE BLOOD COUNT 5.3 10^3/uL (4.0-10.5)
[2018-11-10 13:28] LABS: INTERNATIONAL RATION (INR) 2.19; PROTHROMBIN TIME 25.4 SEC (11.4-15.4)
[2018-11-10 13:33] LABS: ALANINE AMINOTRANSFERASE 28 U/L (9-52); ALBUMIN 3.8 g/dL (3.5-5.0); ALKALINE PHOSPHATASE 64 U/L (38-126); ANION GAP 8 (5-19); ASPARTATE AMINO TRANSFERASE 26 U/L (14-36); BILIRUBIN,DIRECT 0.3 mg/dL (0.0-0.4); BILIRUBIN,TOTAL 0.5 mg/dL (0.2-1.3); BLOOD UREA NITROGEN 28 mg/dL (7-20); CALCIUM 9.8 mg/dL (8.4-10.2); CARBON DIOXIDE 29 mmol/L (22-30); CHLORIDE 104 mmol/L (98-107); GLUCOSE 116 mg/dL (75-110); POTASSIUM 4.2 mmol/L (3.6-5.0); SODIUM 141.4 mmol/L (137-145); TOTAL PROTEIN 6.6 g/dL (6.3-8.2)
--- NOTE | 2018-11-10 13:35 | RADIOLOGY REPORT (SQ) ---
EXAM DESCRIPTION: CHEST PA/LATERAL COMPLETED DATE/TIME: 11/10/2018 1:14 pm REASON FOR STUDY: SHORTNESS OF BREATH,COUGH COMPARISON: 04/30/2018 EXAM PARAMETERS: NUMBER OF VIEWS: two views TECHNIQUE: Digital Frontal and Lateral radiographic views of the chest acquired. RADIATION DOSE: NA LIMITATIONS: none FINDINGS: LUNGS AND PLEURA: No opacities, masses or pneumothorax. No pleural effusion. MEDIASTINUM AND HILAR STRUCTURES: No masses or contour abnormalities. HEART AND VASCULAR STRUCTURES: Borderline cardiomegaly. No pulmonary edema. BONES: No acute findings. HARDWARE: None in the chest. OTHER: No other significant finding. IMPRESSION: Borderline cardiomegaly without pulmonary edema. TECHNICAL DOCUMENTATION: JOB ID: [id number] [employer]- All Rights Reserved Reading location - IP/workstation name: [email or web address]
[2018-11-10 13:41] LABS: APPEARANCE,URINE CLEAR; BILIRUBIN,URINE NEGATIVE (NEGATIVE); COLOR,URINE YELLOW; GLUCOSE, URINE NEGATIVE (NEGATIVE); KETONES,URINE NEGATIVE (NEGATIVE); LEUKOCYTE ESTERASE,URINE SMALL (NEGATIVE); NITRITE,URINE NEGATIVE (NEGATIVE); PROTEIN,URINE NEGATIVE (NEGATIVE); URINE SPECIFIC GRAVITY 1.009; UROBILINOGEN,URINE NEGATIVE mg/dL (<2.0)
[2018-11-10 14:23] LABS: ALBUMIN 3.8 g/dL (3.5-5.0); ANION GAP 8 (5-19); BLOOD UREA NITROGEN 28 mg/dL (7-20); CALCIUM 9.8 mg/dL (8.4-10.2); CARBON DIOXIDE 29 mmol/L (22-30); CHLORIDE 104 mmol/L (98-107); GLUCOSE 116 mg/dL (75-110); POTASSIUM 4.2 mmol/L (3.6-5.0); SODIUM 141.4 mmol/L (137-145)
[2018-11-10 14:24] LABS: PHOSPHORUS 3.5 mg/dL (2.5-4.5)
[2018-11-11 10:37] LABS: CREATININE URINE 73.5 mg/dL (Not Estab.); MICROALBUMIN URINE 11.8 ug/mL (Not Estab.)
== END ==
LOC: OD 12:31
PROVIDERS: ATTEND Specialist
DX: I11.0 Hypertensive heart disease with heart failure (principal); I50.32 Chronic diastolic (congestive) heart failure; I35.0 Nonrheumatic aortic (valve) stenosis; I34.0 Nonrheumatic mitral (valve) insufficiency; I36.1 Nonrheumatic tricuspid (valve) insufficiency; E78.5 Hyperlipidemia, unspecified; I27.89 Other specified pulmonary heart diseases; Z79.01 Long term (current) use of anticoagulants; E11.22 Type 2 diabetes mellitus with diabetic chronic kidney disease; I12.9 Hypertensive chronic kidney disease with stage 1 through stage 4 chronic kidney disease, or unspecified chronic kidney disease; N18.4 Chronic kidney disease, stage 4 (severe); R94.31 Abnormal electrocardiogram [ECG] [EKG]; R06.00 Dyspnea, unspecified; I48.2 Chronic atrial fibrillation; R06.02 Shortness of breath; I42.9 Cardiomyopathy, unspecified; I27.21 Secondary pulmonary arterial hypertension; E78.49 Other hyperlipidemia
CPT/HCPCS: 36415; 71046; 80048; 80069; 80076; 81001; 82043; 82306; 82570; 83036; 83735; 83970; 85025; 85610

== ENCOUNTER → 2018-12-19 | Outpatient (CLI) | payer MEDICARE ==
[2018-12-19 09:40] LABS: ABSOLUTE BASOPHILS # (AUTO) 0.1 10^3/uL (0.0-0.2); ABSOLUTE EOSINOPHILS # (AUTO) 0.2 10^3/uL (0.0-0.6); ABSOLUTE LYMPHOCYTES (AUTO) 1.3 10^3/uL (0.5-4.7); ABSOLUTE MONOCYTES (AUTO) 0.7 10^3/uL (0.1-1.4); ABSOLUTE NEUT (AUTO) 5.4 10^3/uL (1.7-8.2); BASOPHILS % (AUTO) 0.7 % (0-2); EOSINOPHILS % (AUTO) 2.8 % (0-6); HEMATOCRIT 45.7 % (36.0-47.0); HEMOGLOBIN 15.5 g/dL (12.0-15.5); LYMPHOCYTES % (AUTO) 17.3 % (13-45); MEAN CORPUSCULAR HEMOGLOBIN 28.2 pg (27.0-33.4); MEAN CORPUSCULAR HGB CONC 33.8 g/dL (32.0-36.0); MEAN CORPUSCULAR VOLUME 84 fl (80-97); PLATELET COUNT 222 10^3/uL (150-450); RED BLOOD COUNT 5.48 10^6/uL (3.72-5.28); RED CELL DISTRIBUTION WIDTH 16.7 % (11.5-14.0); SEGMENTED NEUTROPHILS % (AUTO) 70.2 % (42-78); TOTAL CELLS COUNTED % (AUTO) 100 %; WHITE BLOOD COUNT 7.8 10^3/uL (4.0-10.5)
[2018-12-19 10:00] LABS: ALANINE AMINOTRANSFERASE 24 U/L (9-52); ALBUMIN 3.9 g/dL (3.5-5.0); ALKALINE PHOSPHATASE 86 U/L (38-126); ANION GAP 11 (5-19); ASPARTATE AMINO TRANSFERASE 20 U/L (14-36); BILIRUBIN,DIRECT 0.3 mg/dL (0.0-0.4); BILIRUBIN,TOTAL 0.7 mg/dL (0.2-1.3); BLOOD UREA NITROGEN 42 mg/dL (7-20); CALCIUM 9.2 mg/dL (8.4-10.2); CARBON DIOXIDE 22 mmol/L (22-30); CHLORIDE 106 mmol/L (98-107); GLUCOSE 130 mg/dL (75-110); POTASSIUM 3.7 mmol/L (3.6-5.0); SODIUM 139.1 mmol/L (137-145); TOTAL PROTEIN 6.8 g/dL (6.3-8.2)
[2018-12-21 11:10] LABS: PROTHROMBIN TIME 65.7 SEC (11.4-15.4)
[2018-12-21 11:11] LABS: INTERNATIONAL RATION (INR) 7.43
== END ==
LOC: OD 09:06
PROVIDERS: ATTEND Specialist
DX: I13.0 Hypertensive heart and chronic kidney disease with heart failure and stage 1 through stage 4 chronic kidney disease, or unspecified chronic kidney disease (principal); I50.32 Chronic diastolic (congestive) heart failure; E08.22 Diabetes mellitus due to underlying condition with diabetic chronic kidney disease; N18.4 Chronic kidney disease, stage 4 (severe); I34.0 Nonrheumatic mitral (valve) insufficiency; I35.0 Nonrheumatic aortic (valve) stenosis; I36.1 Nonrheumatic tricuspid (valve) insufficiency; I27.89 Other specified pulmonary heart diseases; E78.49 Other hyperlipidemia; R94.31 Abnormal electrocardiogram [ECG] [EKG]; R06.00 Dyspnea, unspecified; I48.2 Chronic atrial fibrillation; R06.02 Shortness of breath; I42.9 Cardiomyopathy, unspecified; I27.21 Secondary pulmonary arterial hypertension; Z79.01 Long term (current) use of anticoagulants; Z79.899 Other long term (current) drug therapy
CPT/HCPCS: 36415; 80048; 80076; 83036; 83735; 85025; 85610

== ENCOUNTER → 2019-01-02 | Outpatient (CLI) | payer MEDICARE ==
[2019-01-02 12:39] LABS: INTERNATIONAL RATION (INR) 1.33; PROTHROMBIN TIME 16.6 SEC (11.4-15.4)
== END ==
LOC: LAB 12:11
PROVIDERS: ATTEND Specialist
DX: I13.0 Hypertensive heart and chronic kidney disease with heart failure and stage 1 through stage 4 chronic kidney disease, or unspecified chronic kidney disease (principal); I50.32 Chronic diastolic (congestive) heart failure; N18.4 Chronic kidney disease, stage 4 (severe); E08.22 Diabetes mellitus due to underlying condition with diabetic chronic kidney disease; I42.9 Cardiomyopathy, unspecified; Z79.01 Long term (current) use of anticoagulants; E78.49 Other hyperlipidemia; I34.0 Nonrheumatic mitral (valve) insufficiency; I35.0 Nonrheumatic aortic (valve) stenosis; I36.1 Nonrheumatic tricuspid (valve) insufficiency; I27.89 Other specified pulmonary heart diseases; R06.00 Dyspnea, unspecified; I48.2 Chronic atrial fibrillation; Z79.899 Other long term (current) drug therapy
CPT/HCPCS: 36415; 85610

== ENCOUNTER → 2019-02-15 | Outpatient (CLI) | payer MEDICARE ==
[2019-02-15 12:30] LABS: ANION GAP 8 (5-19); BLOOD UREA NITROGEN 25 mg/dL (7-20); CALCIUM 9.7 mg/dL (8.4-10.2); CARBON DIOXIDE 27 mmol/L (22-30); CHLORIDE 106 mmol/L (98-107); GLUCOSE 108 mg/dL (75-110)
== END ==
LOC: OD 11:03
PROVIDERS: ATTEND Internal Medicine Nephrology
DX: I12.9 Hypertensive chronic kidney disease with stage 1 through stage 4 chronic kidney disease, or unspecified chronic kidney disease (principal); N18.4 Chronic kidney disease, stage 4 (severe); E11.22 Type 2 diabetes mellitus with diabetic chronic kidney disease; R60.9 Edema, unspecified
CPT/HCPCS: 36415; 80048

== ENCOUNTER → 2019-03-28 | Outpatient (CLI) | payer MEDICARE ==
[2019-03-28 08:50] LABS: INTERNATIONAL RATION (INR) 2.57; PROTHROMBIN TIME 28.1 SEC (11.4-15.4)
== END ==
LOC: OD 07:19
PROVIDERS: ATTEND Specialist
DX: I13.0 Hypertensive heart and chronic kidney disease with heart failure and stage 1 through stage 4 chronic kidney disease, or unspecified chronic kidney disease (principal); I50.32 Chronic diastolic (congestive) heart failure; N18.4 Chronic kidney disease, stage 4 (severe); E08.22 Diabetes mellitus due to underlying condition with diabetic chronic kidney disease; I48.0 Paroxysmal atrial fibrillation; Z79.01 Long term (current) use of anticoagulants; I42.9 Cardiomyopathy, unspecified; E78.49 Other hyperlipidemia; I34.0 Nonrheumatic mitral (valve) insufficiency; I35.0 Nonrheumatic aortic (valve) stenosis; I36.1 Nonrheumatic tricuspid (valve) insufficiency; I27.21 Secondary pulmonary arterial hypertension; I27.89 Other specified pulmonary heart diseases; R94.31 Abnormal electrocardiogram [ECG] [EKG]; Z79.899 Other long term (current) drug therapy
CPT/HCPCS: 36415; 85610

== ENCOUNTER → 2019-06-08 | Outpatient (CLI) | payer MEDICARE ==
[2019-06-08 11:43] LABS: INTERNATIONAL RATION (INR) 1.08
[2019-06-08 11:48] LABS: ABSOLUTE BASOPHILS # (AUTO) 0.1 10^3/uL (0.0-0.2); ABSOLUTE EOSINOPHILS # (AUTO) 0.1 10^3/uL (0.0-0.6); ABSOLUTE LYMPHOCYTES (AUTO) 0.9 10^3/uL (0.5-4.7); ABSOLUTE MONOCYTES (AUTO) 0.6 10^3/uL (0.1-1.4); ABSOLUTE NEUT (AUTO) 4.1 10^3/uL (1.7-8.2); BASOPHILS % (AUTO) 0.9 % (0-2); EOSINOPHILS % (AUTO) 1.6 % (0-6); HEMATOCRIT 40.5 % (36.0-47.0); HEMOGLOBIN 13.6 g/dL (12.0-15.5); LYMPHOCYTES % (AUTO) 16.2 % (13-45); MEAN CORPUSCULAR HEMOGLOBIN 29.3 pg (27.0-33.4); MEAN CORPUSCULAR HGB CONC 33.5 g/dL (32.0-36.0); MEAN CORPUSCULAR VOLUME 87 fl (80-97); MONOCYTES % (AUTO) 9.6 % (3-13); PLATELET COUNT 163 10^3/uL (150-450); RED BLOOD COUNT 4.63 10^6/uL (3.72-5.28); RED CELL DISTRIBUTION WIDTH 14.7 % (11.5-14.0); SEGMENTED NEUTROPHILS % (AUTO) 71.7 % (42-78); TOTAL CELLS COUNTED % (AUTO) 100 %; WHITE BLOOD COUNT 5.8 10^3/uL (4.0-10.5)
[2019-06-08 12:08] LABS: ALBUMIN 3.8 g/dL (3.5-5.0); ANION GAP 11 (5-19); BLOOD UREA NITROGEN 24 mg/dL (7-20); CALCIUM 9.9 mg/dL (8.4-10.2); CARBON DIOXIDE 28 mmol/L (22-30); CHLORIDE 103 mmol/L (98-107); GLUCOSE 126 mg/dL (75-110); PHOSPHORUS 4.1 mg/dL (2.5-4.5); POTASSIUM 4.2 mmol/L (3.6-5.0)
[2019-06-08 12:08] LABS: APPEARANCE,URINE CLEAR; BILIRUBIN,URINE NEGATIVE (NEGATIVE); COLOR,URINE YELLOW; GLUCOSE, URINE NEGATIVE (NEGATIVE); KETONES,URINE NEGATIVE (NEGATIVE); LEUKOCYTE ESTERASE,URINE MODERATE (NEGATIVE); NITRITE,URINE NEGATIVE (NEGATIVE); PROTEIN,URINE 100 mg/dL (NEGATIVE); URINE SPECIFIC GRAVITY 1.019; UROBILINOGEN,URINE NEGATIVE mg/dL (<2.0)
[2019-06-09 10:37] LABS: CREATININE URINE 158.1 mg/dL (Not Estab.); MICROALBUMIN URINE 153.3 ug/mL (Not Estab.)
== END ==
LOC: OD 11:00
PROVIDERS: ATTEND Internal Medicine Nephrology
DX: I48.20 Chronic atrial fibrillation, unspecified (principal); I13.0 Hypertensive heart and chronic kidney disease with heart failure and stage 1 through stage 4 chronic kidney disease, or unspecified chronic kidney disease; I50.32 Chronic diastolic (congestive) heart failure; N18.4 Chronic kidney disease, stage 4 (severe); E08.22 Diabetes mellitus due to underlying condition with diabetic chronic kidney disease; I35.0 Nonrheumatic aortic (valve) stenosis; I34.0 Nonrheumatic mitral (valve) insufficiency; E78.49 Other hyperlipidemia; I36.1 Nonrheumatic tricuspid (valve) insufficiency; I27.89 Other specified pulmonary heart diseases; I42.9 Cardiomyopathy, unspecified; Z79.01 Long term (current) use of anticoagulants; R94.31 Abnormal electrocardiogram [ECG] [EKG]; R06.00 Dyspnea, unspecified; Z79.899 Other long term (current) drug therapy
CPT/HCPCS: 36415; 80069; 81001; 82043; 82306; 82570; 83970; 85025; 85610; 87086

== ENCOUNTER → 2020-01-14 | Outpatient (CLI) | payer MEDICARE ==
[2020-01-14 14:46] LABS: INTERNATIONAL RATION (INR) 3.01; PROTHROMBIN TIME 31.8 SEC (11.4-15.4)
== END ==
LOC: OD 13:08
PROVIDERS: ATTEND Specialist
DX: I11.0 Hypertensive heart disease with heart failure (principal); I50.32 Chronic diastolic (congestive) heart failure; N18.4 Chronic kidney disease, stage 4 (severe); E08.22 Diabetes mellitus due to underlying condition with diabetic chronic kidney disease; I35.0 Nonrheumatic aortic (valve) stenosis; I48.20 Chronic atrial fibrillation, unspecified; Z79.01 Long term (current) use of anticoagulants; I34.0 Nonrheumatic mitral (valve) insufficiency; I36.1 Nonrheumatic tricuspid (valve) insufficiency; I35.1 Nonrheumatic aortic (valve) insufficiency; I27.89 Other specified pulmonary heart diseases; R06.00 Dyspnea, unspecified; E78.49 Other hyperlipidemia; Z79.899 Other long term (current) drug therapy
CPT/HCPCS: 36415; 85610